=== PATIENT | female | born 1975 | race Caucasian/White ===

== ENCOUNTER 2020-10-11 22:41 | Inpatient (IN) | payer MEDICAID, SELFPAY ==
--- NOTE | ~2020-10-11 | CT_ITS ---
EXAMINATION: CT ABDOMEN AND PELVIS WITH CONTRAST CT LEFT FEMUR WITH CONTRAST CLINICAL INFORMATION: Left hip pain and erythema. Question of abscess. COMPARISON: None TECHNIQUE: Multidetector volumetric images were obtained from the superior aspect of the liver through the pubic symphysis following administration 85 mL of Omnipaque [address] imaging of the left femur was also performed. Sagittal and coronal reformatted images were obtained on the technologist's workstation. Oral contrast: No This CT examination was performed using dose optimization techniques as appropriate, variously including the following: *Automated exposure control *Adjustment of mA and/or kV according to patient size (this includes techniques or standardized protocols for targeted exams where dose is matched to indication/reason for exam; i.e. extremities or head) *Use of iterative reconstruction technique DLP: 947 mGy-cm FINDINGS: LUNG BASES: Dependent atelectatic changes present within the right lateral lung. LIVER, GALLBLADDER, AND BILIARY TREE: The liver is normal in size, shape, and attenuation. No focal hepatic lesion or biliary ductal dilatation is present. Gallbladder unremarkable. PANCREAS: Unremarkable. SPLEEN: Unremarkable. ADRENAL GLANDS: Unremarkable. KIDNEYS AND URETERS: The kidneys are normal in size, shape, and attenuation. There is a 5.8 cm simple cyst emanating from the anterior cortex of the right kidney. No hydronephrosis, hydroureter, or calculi seen. No perinephric stranding. BLADDER: There is a diverticulum in the right posterolateral aspect of the bladder. Bladder otherwise unremarkable. GASTROINTESTINAL TRACT: The small and large bowel are unremarkable. The appendix is unremarkable. ABDOMINAL WALL: No significant hernia is appreciated. LYMPH NODES: Normal. VASCULAR: Unremarkable. PELVIC VISCERA: Hysterectomy. No adnexal abnormalities. MUSCULOSKELETAL STRUCTURES: Shortness there is a 9.5 x 6.0 x 6.6 cm fluid and gas containing collection, which is largely coalescent and likely communicates with a comminuted healing fracture of the left iliac wing with associated callus formation. There is also involvement of the adjacent LEFT quadratus lumborum which is thickened and shows low-density change likely representing myositis Associated with this comminuted healing fracture is surrounding fluid, both superficial and deep to the iliac wing measuring 5.4 x 4.6 x 6.3 cm which likely represents an infected hematoma in this case. This fracture extends to the left sacroiliac joint which is diastatic. There is mild thickening of the overlying gluteus minimus musculature at the site of the comminuted fracture of the left iliac wing, as well as the iliacus musculature. Multiple additional chronic fractures of the pelvis are identified in various stages of healing including bilateral comminuted superior and inferior pubic rami fractures involving the anterior wall of the acetabulum on the left with intra-articular extension, as well as a minimally displaced fracture of the right iliac crest, and bilateral vertical longitudinal fractures of the sacral lacy, zone 1. Left femur is intact. Fat stranding centered within the left flank/gluteal region and overlying skin thickening extends inferiorly along the lateral left thigh, however the deeper musculature of the left thigh is unremarkable. CT/CT abdomen pelvis w con IMPRESSION: * There is a large abscess within the subcutaneous fat of the left flank and buttock which extends to a comminuted chronic nonunited fracture of the left iliac wing where there is an additional associated fluid collection associated with the fracture, presumably an infected hematoma. Osteomyelitis of the bones surrounding this fracture is present until proven otherwise. * Nondisplaced right iliac wing fracture, bilateral superior and inferior pubic rami fractures and bilateral sacral fractures show varying degrees of healing. The left superior pubic ramus fracture involves anterior acetabulum. * Skin thickening and fat stranding extending inferiorly along the left thigh, there is no evidence of deeper involvement with respect to the left thigh or femur. This critical result was discussed with Dr Lily Jackson at 10/12/2020 4:37 AM and it was ascertained that the content and urgency of the report was understood at the time of direct communication.
[2020-10-11 23:01] VITALS: BP 127/82; BP 160/100; PULSE 116; PULSE 122; RESP 18; TEMP 38.2; O2SAT 100; O2SAT 97; BMI 34.2
--- NOTE | 2020-10-11 23:28 | ED.GENADULT ---
HPI - General Adult General Chief complaint: General Medical Stated complaint: L Hip Pain Time Seen by Provider: 10/11/20 22:47 Source: patient Mode of arrival: EMS History of Present Illness HPI narrative: 45-year-old female with significant history and current use IVDA of heroin last use was approximately 6 hours ago now presents via EMS with complaints severe left hip pain that has been ongoing for 4-5 days with associated subjective fever, chills and severe pain that is prevented her from being able to ?straighten at the waist?. Patient denies any numbness or tingling to the distal lower left extremity but has severe pain over the left lateral aspect of the hip. She denies any falls or physical trauma recently. Related Data Home Medications Medication Instructions Recorded Confirmed No Known Home Meds 10/12/20 10/12/20 Allergies Allergy/AdvReac Type Severity Reaction Status Date / Time Penicillins [PENICILLINS] Allergy Mild RASH Unverified 12/03/19 17:32 methocarbamol [From ROBAXIN] Allergy Unknown UNKNOWN Unverified 12/03/19 17:32 diphenhydramine AdvReac Unknown RERSTLESS Unverified 12/03/19 17:32 [From BENADRYL] LEGS Review of Systems Review of Systems: Pertinent positives and negatives as stated in HPI 10 point review of systems is otherwise negative. PMFSH Past Medical History Source: nursing notes reviewed Medical History Endometriosis Social History Social History Advance Directives: No Advance Directives Information Provided: No Patient : No Physical Exam Vital Signs: Vital Signs: Last Vital Signs Temp 100.7 F H 10/11/20 23:01 Pulse 74 10/12/20 06:00 Resp 16 10/12/20 06:00 BP 99/58 L 10/12/20 06:00 Pulse Ox 92 10/12/20 03:00 Body Mass Index 34.2 VITAL SIGNS: Reviewed. GENERAL: Well developed, well nourished, in no acute distress. HEAD: Normocephalic/atraumatic EYES: PERRLA, EOMI EARS: Ext canals without abnormality NOSE: Nares patent bilateral OROPHARYNX: no oral lesions noted, posterior pharynx clear NECK: Supple, no adenopathy LUNGS: Normal breath sounds. No adventitious sounds or accessory muscle use. SpO2<97> CARDIOVASCULAR: Regular rate and rhythm without noted murmurs ABDOMEN: Soft, non-tender, non-distended with bowel sounds. LEFT HIP/GLUTEAL: Patient is in a flexed position at the hip with noted erythema/swelling/excruciating pain on palpation over the lateral hip, tactile warmth, sensation intact, capillary refill less than 3 seconds, palpable DP/PT SKIN: Inspection of the skin reveals no rashes, ulcerations noted to bilateral posterior upper extremities without active drainage but evidence of surrounding erythema NEUROLOGIC: Alert and oriented x 4. Strength and sensation to light touch were grossly intact x 4. Course Course Course Narrative: 45-year-old female with history and clinical presentation consistent with IVDA and suspect abscess versus septic joint. Will gain IV access, administered pain medications and evaluate with lab work as well as imaging. Review of all investigations consistent with abscess and sepsis, patient received pain medication with resolution of discomfort on re-evaluation, as well as receiving antibiotics/lactic acid/blood cultures. Case was discussed with industrial economics professor Surgical Services who is agreeable for admission. Orthopedic service was also consulted. Medical Decision Making Lab Data Result diagrams: 10/12/20 01:04 10/12/20 01:04 Labs: Lab Results 10/12/20 10/12/20 10/12/20 Range/Units 01:04 01:04 01:04 WBC 12.9 H (4.8-10.8) X10*3/uL RBC 3.26 L (4.20-5.50) X10*6/uL Hgb 7.2 L (12.0-16.0) g/dl Hct 23.2 L (37-47) % MCV 71.2 L (80-98) fL MCH 22.1 L (27.0-33.0) pg MCHC 31.0 (31.0-35.0) g/dl RDW 15.8 (11.0-16.0) % Plt Count 479 H (160-400) X10*3/uL MPV 9.2 L (9.4-12.3) fL Immature Gran % (Auto) 1.2 H (0.0-0.4) % Neut % (Auto) 76.0 H (45-73) % Lymph % (Auto) 9.7 L (20-40) % [place] % (Auto) 11.9 H (2-11) % Eos % (Auto) 1.0 (0-4) % Baso % (Auto) 0.2 (0-2) % Lymph # (Auto) 1.3 (1.2-4.9) X10*3/uL [place] # (Auto) 1.5 H (0.1-1.2) X10*3/uL Eos # (Auto) 0.1 (0.0-0.4) X10*3/uL Baso # (Auto) 0.0 (0.0-0.2) X10*3/uL Abs Immat Gran (auto) 0.16 H (0.00-0.03) X10*3/uL Absolute Neuts (auto) 9.8 H (2.0-8.3) X10*3/uL Absolute Nucleated RBC 0.000 (0.0-0.012) X10*3/uL Nucleated RBC % (auto) 0.0 (0.0-0.2) /100WBC Smear Tech's Comments VERIFIED Sodium 137 (135-145) mmol/L Potassium 3.2 L (3.3-5.1) mmol/L Chloride 101 (96-108) mmol/L Carbon Dioxide 26 (22-29) mmol/L Anion Gap 13 (12-20) BUN 10 (9-16) mg/dL Creatinine 0.62 (0.5-1.4) mg/dL Estim Creat Clear Calc 115.9 Estimated GFR > 60 Random Glucose 110 (60-115) mg/dL Lactic Acid 0.8 (0.5-2.0) mmol/L Calcium 8.7 (8.4-10.2) mg/dL Total Bilirubin 0.4 (0.0-1.0) mg/dL AST 21 (5-31) U/L ALT 15 (0-31) U/L Alkaline Phosphatase 201 H (39-117) U/L C-Reactive Protein 27.40 H (< or = 0.50) mg/dL Total Protein 6.1 L (6.5-8.0) g/dL Albumin 2.9 L (3.5-5.0) g/dL COVID-19 (LYNDSEY) (Negative) COVID-19 Clin Com 10/12/20 Range/Units 04:50 WBC (4.8-10.8) X10*3/uL RBC (4.20-5.50) X10*6/uL Hgb (12.0-16.0) g/dl Hct (37-47) % MCV (80-98) fL MCH (27.0-33.0) pg MCHC (31.0-35.0) g/dl RDW (11.0-16.0) % Plt Count (160-400) X10*3/uL MPV (9.4-12.3) fL Immature Gran % (Auto) (0.0-0.4) % Neut % (Auto) (45-73) % Lymph % (Auto) (20-40) % [place] % (Auto) (2-11) % Eos % (Auto) (0-4) % Baso % (Auto) (0-2) % Lymph # (Auto) (1.2-4.9) X10*3/uL [place] # (Auto) (0.1-1.2) X10*3/uL Eos # (Auto) (0.0-0.4) X10*3/uL Baso # (Auto) (0.0-0.2) X10*3/uL Abs Immat Gran (auto) (0.00-0.03) X10*3/uL Absolute Neuts (auto) (2.0-8.3) X10*3/uL Absolute Nucleated RBC (0.0-0.012) X10*3/uL Nucleated RBC % (auto) (0.0-0.2) /100WBC Smear Tech's Comments Sodium (135-145) mmol/L Potassium (3.3-5.1) mmol/L Chloride (96-108) mmol/L Carbon Dioxide (22-29) mmol/L Anion Gap (12-20) BUN (9-16) mg/dL Creatinine (0.5-1.4) mg/dL Estim Creat Clear Calc Estimated GFR Random Glucose (60-115) mg/dL Lactic Acid (0.5-2.0) mmol/L Calcium (8.4-10.2) mg/dL Total Bilirubin (0.0-1.0) mg/dL AST (5-31) U/L ALT (0-31) U/L Alkaline Phosphatase (39-117) U/L C-Reactive Protein (< or = 0.50) mg/dL Total Protein (6.5-8.0) g/dL Albumin (3.5-5.0) g/dL COVID-19 ([facility]NDSEY) Negative (Negative) COVID-19 Clin Com See Note Critical Care Time Critical Care Time Critical Care Time: Yes Total Critical Care Time: 30 Attestation: I personally attest to this time spent taking care of the patient. Discharge Plan Discharge Clinical Impression: Abscess, gluteal, left, Sepsis, Multiple pelvic fractures Patient Disposition: Admitted As Inpatient
[2020-10-12] VITALS (23 sets, daily range): BP systolic 90–154; BP diastolic 45–93; PULSE 74–111; RESP 12–22; TEMP 37–37.7; O2SAT 92–100; BMI 32.9; BMI 27.5
--- NOTE | 2020-10-12 00:05 | PC.NURSE ---
MD AT BEDSIDE FOR EVAL. PT UNABLE TO SIT UP STRAIGHT D/T PAIN TO LOWER BACK AREA. PT IS A VERY DIFFICULT STICK. CHG NURSE IN ROOM FOR IV PLACEMENT. PT CRYING IN PAIN. WILL CONTINUE TO MONITOR PT.
[2020-10-12] MEDS: Acetaminophen 325 MG TABLET 975 MG PO (00:16)
--- NOTE | 2020-10-12 01:09 | PC.NURSE ---
PT IS A VERY DIFFICULT STICK, AWARE. IV PLACED TO LEFT FA. LABS DRAWN BY STRAIGHT STICK. TITA HOLLEY [phone].
[2020-10-12 01:13] LABS: Basophils Percent Auto 0.2 % (0-2); Eosinophils Absolute Auto 0.1 X10*3/uL (0.0-0.4); Hematocrit 23.2 % (37-47); Hemoglobin 7.2 g/dl (12.0-16.0); Imm Gran Abs Auto 0.16 X10*3/uL (0.00-0.03); Imm Gran Pct Auto 1.2 % (0.0-0.4); Lymphocytes Absolute Auto 1.3 X10*3/uL (1.2-4.9); Lymphocytes Percent Auto 9.7 % (20-40); MANUAL DIFF FLAG SCAN; Mean Corpuscular Hemoglobin 22.1 pg (27.0-33.0); Mean Corpuscular Volume 71.2 fL (80-98); Mean Platelet Volume 9.2 fL (9.4-12.3); Monocytes Absolute Auto 1.5 X10*3/uL (0.1-1.2); Monocytes Percent Auto 11.9 % (2-11); Neutrophils Absolute Auto 9.8 X10*3/uL (2.0-8.3); Platelet Count 479 X10*3/uL (160-400); Red Blood Count 3.26 X10*6/uL (4.20-5.50); Red Cell Distribution Width 15.8 % (11.0-16.0); SCAN SMEAR FLAG 1; White Blood Count 12.9 X10*3/uL (4.8-10.8)
[2020-10-12 01:34] LABS: Lactic Acid 0.8 mmol/L (0.5-2.0)
[2020-10-12 01:35] LABS: SLIDE REVIEW VERIFIED
[2020-10-12 01:40] LABS: Alanine Aminotransferase 15 U/L (0-31); Albumin Level 2.9 g/dL (3.5-5.0); Alkaline Phosphatase 201 U/L (39-117); Anion Gap 13 (12-20); Aspartate Amino Transferase 21 U/L (5-31); Bilirubin Total 0.4 mg/dL (0.0-1.0); Blood Urea Nitrogen 10 mg/dL (9-16); Calcium 8.7 mg/dL (8.4-10.2); Carbon Dioxide 26 mmol/L (22-29); Chloride 101 mmol/L (96-108); Creatinine Clr Calc Pharmacy 115.9; Estimated Glomerular Filt Rate > 60; Glucose Random 110 mg/dL (60-115); Potassium 3.2 mmol/L (3.3-5.1); Sodium 137 mmol/L (135-145); Total Protein 6.1 g/dL (6.5-8.0)
[2020-10-12] MEDS: Ketorolac Tromethamine 15 MG/ML VIAL IVPUSH (02:33)
--- NOTE | 2020-10-12 03:15 | PC.NURSE ---
helped pt on to her side for cat scan.
[2020-10-12] MEDS: fentaNYL citrate/PF 100 MCG/2 ML VIAL 25 MCG IVPUSH (03:30)
[2020-10-12] MEDS: Piperacillin Sodium/Tazobactam 3.375 GM in 0.9 % Sodium Chloride 50 ML IV ×3 (04:30→18:36)
[2020-10-12] MEDS: vancomycin HCL 1,000 MG in 0.9 % Sodium Chloride 250 ML 270 MG IV (05:01)
[2020-10-12] MEDS: iohexoL 350 MG/ML 100 ML INFUS..BTL 85 ML IV (06:41)
[2020-10-12 07:13] LABS: COVID-19 Test Negative (Negative); IDNOW Serial# 9DD0AD1C
--- NOTE | 2020-10-12 07:25 | PC.NURSE ---
Pt is in bed resting quietly with eyes closed. respirations are even and nonlabored
[2020-10-12] MEDS: HYDROmorphone HCl 0.5 MG/0.5 ML SYRINGE IVPUSH ×4 (08:13→22:07)
[2020-10-12] MEDS: 0.9 % Sodium Chloride 1,000 ML 100 ML IVCONT (08:17)
[2020-10-12] MEDS: 0.9 % Sodium Chloride Flush 3 ML SYRINGE IVFLUSH ×2 (08:17→17:14)
--- NOTE | 2020-10-12 08:18 | PM.HPGS ---
History of Present Illness History of Present Illness Date of Service: 10/12/20 Chief complaint: left hip abscess Narrative: Katie Tejada is a 45 year old female who has a long history of IV drug abuse and skin popping , was brought the ER overnight because of left pain. The patient although await, is not very willing to engage at this time and provides limited history. She does state that she has history of falling although she says that this was not recent. She says she has had severe pain on the left hip area for several days now. She seems to have been bed ridden already for a while because of this. She denies fever or chills at home. Again, not much of a history is provided by the patient at this time. Review of Systems Constitutional: Constitutional: Denies chills and Denies fever(s) Cardiovascular: Cardiovascular: Denies chest pain, Denies dyspnea and Denies dyspnea on exertion Respiratory: Respiratory: Denies cough, Denies dyspnea and Denies dyspnea on exertion Gastrointestinal: Gastrointestinal: Denies hematochezia and Denies change in bowel habits Genitourinary: Genitourinary: Denies hematuria Musculoskeletal: Musculoskeletal: Reports back pain and Reports limited range of motion Neurologic: Denies focal weakness and Denies convulsions Psychiatric: Psychiatric: Denies depression and Denies mood swings PMFSH Past Medical History Medical History Endometriosis IV drug abuse Social History Social History Patient Tobacco Use Status: Current everyday Tobacco user Tobacco use type: Cigarette Smoked in Last 30 Days: Yes Use of substances other than those prescribed or required for medical reasons: Yes Substance Use Frequency: Daily Are you DNR?: No Advance Directives: No Advance Directives Information Provided: No Recently lost weight without trying: No Nutrition Risks: No Nutritional Risk Patient : No Meds Allergies Allergy/AdvReac Type Severity Reaction Status Date / Time Penicillins [PENICILLINS] Allergy Mild RASH Verified 10/12/20 12:57 methocarbamol [From ROBAXIN] Allergy Unknown UNKNOWN Verified 10/12/20 12:57 diphenhydramine AdvReac Unknown RERSTLESS Verified 10/12/20 12:57 [From BENADRYL] LEGS Active Medications: Current Medications Generic Name Dose Route Start Last Admin Trade Name Freq PRN Reason Stop Dose Admin Heparin Sodium (Porcine) 5,000 unit 10/12/20 22:00 Heparin Sodium,Porcine 5,000 Unit/Ml Vial SUBCUT Q12H KEMAL Hydromorphone HCl 0.5 mg 10/12/20 07:50 10/12/20 08:13 Hydromorphone Hcl 0.5 Mg/0.5 Ml Syringe IVPUSH 0.5 mg Q3H PRN Administration pain Sodium Chloride 1,000 mls @ 100 mls/hr 10/12/20 08:00 10/12/20 08:17 Ns IVCONT 100 mls/hr .Q10H KEMAL Administration Piperacillin Sod/Tazobactam 50 mls @ 100 mls/hr 10/12/20 12:00 Sod 3.375 gm/ Sodium Chloride IV Q6H KEMAL Sodium Chloride 3 ml 10/12/20 08:00 10/12/20 08:17 0.9 % Sodium Chloride Flush 3 Ml Syringe IVFLUSH 3 ml QSHIFT KEMAL Administration Home Medications Medication Instructions Recorded Confirmed Last Taken Type No Known Home Meds 10/12/20 10/12/20 Unknown History Physical Exam Vital Signs: Vital Signs: Last Vital Signs Temp 100.7 F H 10/11/20 23:01 Pulse 74 10/12/20 06:00 Resp 16 10/12/20 06:00 BP 99/58 L 10/12/20 06:00 Pulse Ox 92 10/12/20 03:00 Body Mass Index 34.2 Const: Other: Lying on her right side, not very communicative although awake - does not seem to want to engage at this time General: no acute distress Orientation/consciousness: patient oriented x3 Neck: Neck: Yes no lymphadenopathy Resp: Auscultation: clear to auscultation bilaterally Cardio: Rhythm: regular rhythm GI: Palpation (GI): Soft to palpation, nontender and no guarding Back/Spine/Pelvis: Other: On the left hip area is note of a large very protuberant induration, about 7 cm in diameter, tender to touch with erythema of the skin; patient with very limited motion on this and is lying on the right side because of pain and tenderness Skin: Other: Multiple skin ulcerations were out her extremities from skin popping Neuro: General: patient oriented x3 Results Results Labs: Short CBC 10/12/20 Range/Units 01:04 WBC 12.9 H (4.8-10.8) X10*3/uL Hgb 7.2 L (12.0-16.0) g/dl Hct 23.2 L (37-47) % Plt Count 479 H (160-400) X10*3/uL BMP 10/12/20 01:04 Sodium 137 Potassium 3.2 L Chloride 101 Carbon Dioxide 26 BUN 10 Creatinine 0.62 Calcium 8.7 Liver Function 10/12/20 Range/Units 01:04 Total Bilirubin 0.4 (0.0-1.0) mg/dL AST 21 (5-31) U/L ALT 15 (0-31) U/L Alkaline Phosphatase 201 H (39-117) U/L Albumin 2.9 L (3.5-5.0) g/dL CT scan - pelvis: report reviewed and image reviewed Assessment and Plan (1) Abscess, gluteal, left: Status: Acute [age] year female with known long-standing history of IV drug abuse, admitted because of left hip pain. She has a CT scan showing a large abscess within the subcutaneous fat of the left flank and buttock extending to a comminuted chronic none noted fracture of the left iliac wing with the correction surrounding the fracture as well. There was note of osteomyelitis of the fractured bone. I have therefore schedule her for an I and D in the operating room under anesthesia. Explained to the patient the technique of this procedure. I had the risks including but not limited to bleeding, infections, postop pain, as well as benefits alternatives. She has given consent. I have discussed the above with the orthopedic service and no other orthopedic intervention is planned at this time. A formal consult will be following on them. The patient has been started on Zosyn and Vanco in the ER. I will do cultures of this abscess in the OR. Quality Stroke Does the patient have a stroke diagnosis?: No VTE Prior VTE?: No VTE Risk Level:: Medical - moderate - high VTE Device Contraindication: N/A - Device Ordered VTE Drug Contraindication: N/A - Med Ordered Procedures Date of Service Date of Service: 10/12/20
--- NOTE | 2020-10-12 09:16 | PC.NURSE ---
Report given to Operating room nurse
[2020-10-12 10:07] LABS: Glucose Urine UA NEG (NEG); Leukocyte Esterase Urine NEG (NEG); Nitrite Urine NEG (NEG); Specific Gravity - Urine 1.015 (1.005-1.025); Urine Blood NEG (NEG); Urine Ketones NEG (NEG); Urine Protein TRACE MG/DL (NEG-TRACE)
[2020-10-12 10:09] LABS: Appearance Urine CLEAR; Color Urine DARK YELLOW
--- NOTE | 2020-10-12 11:24 | PC.NURSE ---
Patient is asleep in bed in no acute distress. respirations are even and nonlabored
--- NOTE | 2020-10-12 12:41 | PC.NURSE ---
patient going by stretcher to operating room. in no acute distress
[2020-10-12 12:47] LABS: UPreg QC Valid YES; Urine Pregnancy NEGATIVE (NEGATIVE)
[2020-10-12] MEDS: Lactated Ringers 500 ML 20 ML IVCONT (13:51)
--- NOTE | 2020-10-12 14:21 | P.OP_ITS ---
Operative Note Operative Note Date of Service: 10/12/20 Narrative: Preop diagnosis: Left hip deep abscess Postop diagnosis: Left hip, deep abscess Procedure: Incision and drainage of a deep abscess of the left hip under anesthesia Surgeon: Andrae Teran MD patient observation assistant: EASTON Robles The patient is a 45-year-old female, admitted by the ER because of a deep left hip abscess. She has a long history of IV drug abuse. She apparently has had falls in the past as her CAT scan had shown an old comminuted iliac fracture on the left, with signs of osteomyelitis. She came to the ER because of pain and tenderness on this area. Her CAT scan had shown a large, deep abscess adjacent to the iliac. This was reviewed with the radiologist She understood the technique of I and D under anesthesia. She was aware of the risks, benefits, and alternatives. She was brought to the operating room and placed in sloppy right lateral decubitus position under monitored anesthesia care. A surgical time-out was done. The area of the left hip was prepped and draped usual sterile fashion. I infiltrated the planned line of incision generously with lidocaine 1%. I made incision using a blade 15. In a cruciate fashion and this was deepened through the thick subcutaneous fat. I then bluntly probed the deep subcutaneous layer using a Eli clamp until was able to enter an abscess cavity. Large amounts of thick purulent material was drained. I did cultures and this were sent for specimens. I probed the deep abscess cavity with my finger to make sure that we had broken down loculations. Again, large amounts of purulent material was drained. We then copiously irrigated the cavity. I then applied an iodoform packing into the area. Dressings were applied. I infiltrated the area with Marcaine 0.5% for postop analgesia and the procedure was completed. The patient tolerated the procedure well. No immediate complications were noted. She was transferred to recovery room with stable vital signs.
--- NOTE | 2020-10-12 14:27 | PM.OP ---
Brief Operative Note Date of Service: 10/12/20 Pre-op diagnosis: left hip abscess Post-op diagnosis: same Procedure: Incision and drainage of left hip abscess Surgeon: MARY ZAMBRANO MD Anesthesia: MAC Was an Industrial Aerial Installer used for this Procedure?: Yes Industrial Aerial Installer: Viktoria Robles Estimated blood loss (mL): 5 Pathology: other (left hip abscess culture) Condition: stable Disposition: PACU
[2020-10-12] MEDS: HYDROmorphone HCl 1 MG/ML SYRINGE IVPUSH (16:10)
[2020-10-12] MEDS: Potassium Chloride Packet 20 MEQ PACKET 40 MEQ PO (17:14)
[2020-10-12] MEDS: Ketorolac Tromethamine 15 MG/ML VIAL 30 MG IVPUSH (17:14)
--- NOTE | 2020-10-12 18:23 | PC.NURSE ---
ADMISSION FROM PACU AT 1641. SUPERVISIOR ASSISTED WITH ADMISSION. SURGEON BEDSIDE TO CHANGE SATURATED LEFT HIP DRESSING. PAIN 8/. TREATED WITH PRN MEDICATION - SEE EMAR. PHOTOS OBTAINED OF BILATERAL ARMS. WOUND RN BEDSIDE.
[2020-10-12] MEDS: Heparin Sodium,Porcine 5,000 UNIT/ML VIAL 5000 UNIT SUBCUT (22:07)
[2020-10-13] VITALS: RESP 16
[2020-10-13] MEDS: Piperacillin Sodium/Tazobactam 3.375 GM in 0.9 % Sodium Chloride 50 ML IV ×5 (01:05→23:32)
[2020-10-13] MEDS: Ketorolac Tromethamine 15 MG/ML VIAL 30 MG IVPUSH ×2 (01:05→07:45)
[2020-10-13] MEDS: oxyCODONE HCl Immed Release 5 MG TABLET PO ×4 (01:05→23:31)
[2020-10-13] MEDS: HYDROmorphone HCl 0.5 MG/0.5 ML SYRINGE IVPUSH ×3 (03:26→08:24)
[2020-10-13 07:09] LABS: MANUAL DIFF FLAG NO
[2020-10-13 07:18] LABS: Hematocrit 23.6 % (37-47); Hemoglobin 7.1 g/dl (12.0-16.0); Mean Corpuscular Volume 73.3 fL (80-98); Red Blood Count 3.22 X10*6/uL (4.20-5.50); White Blood Count 10.6 X10*3/uL (4.8-10.8)
[2020-10-13 07:19] LABS: Basophils Percent Auto 0.2 % (0-2); Eosinophils Absolute Auto 0.2 X10*3/uL (0.0-0.4); Eosinophils Percent Auto 1.5 % (0-4); Imm Gran Abs Auto 0.21 X10*3/uL (0.00-0.03); Lymphocytes Absolute Auto 1.4 X10*3/uL (1.2-4.9); Lymphocytes Percent Auto 13.6 % (20-40); Mean Corpuscular HGB Conc 30.1 g/dl (31.0-35.0); Mean Platelet Volume 9.8 fL (9.4-12.3); Neutrophils Absolute Auto 7.8 X10*3/uL (2.0-8.3); Neutrophils Percent Auto 73.7 % (45-73); Platelet Count 497 X10*3/uL (160-400); Red Cell Distribution Width 16.2 % (11.0-16.0)
[2020-10-13 07:31] VITALS: BP 111/77; PULSE 81; RESP 18; TEMP 37.2; O2SAT 97
[2020-10-13 07:44] LABS: Anion Gap 14 (12-20); Blood Urea Nitrogen 9 mg/dL (9-16); Calcium 8.4 mg/dL (8.4-10.2); Carbon Dioxide 25 mmol/L (22-29); Chloride 106 mmol/L (96-108); Estimated Glomerular Filt Rate > 60; Glucose Fasting 108 mg/dL (60-99); Potassium 4.2 mmol/L (3.3-5.1); Sodium 141 mmol/L (135-145)
--- NOTE | 2020-10-13 08:08 | PM.PNGS ---
Subjective Subjective Date of Service: 10/13/20 <Viktoria Robles PA-C - Last Filed: 10/13/20 08:17> 10/13/20 <Andrae Teran MD - Last Filed: 10/13/20 08:27> Interval history: Left hip feels a little better but still complains of severe pain. Dilaudid dose not providing significant relief. Reports IVDA of 3 bundles of heroin and 250 cocaine daily prior to admission. Gives history of falling into dresser and hitting hip 2 weeks ago. Reports multiple falls due to being high since initial injury/fall one year prior. <Viktoria Robles PA-C - Last Filed: 10/13/20 08:17> Physical Exam Vital Signs: Vital Signs: Last Vital Signs Temp 98.9 F 10/13/20 07:31 Pulse 81 10/13/20 07:31 Resp 18 10/13/20 07:31 BP 111/77 10/13/20 07:31 Pulse Ox 97 10/13/20 07:31 Body Mass Index 27.5 <Viktoria Robles PA-C - Last Filed: 10/13/20 08:17> Const: General: no acute distress, alert and anxious <Viktoria Robles PA-C - Last Filed: 10/13/20 08:17> Orientation/consciousness: patient oriented x3 <Viktoria Robles PA-C - Last Filed: 10/13/20 08:17> Resp: Effort & Inspection: normal respiratory effort <Viktoria Robles PA-C - Last Filed: 10/13/20 08:17> Cardio: Rate: regular rate <Viktoria Robles PA-C - Last Filed: 10/13/20 08:17> Skin: General skin exam: other (multiple eschars of upper extremities) <LORENA Chin Last Filed: 10/13/20 08:17> Neuro: General: patient oriented x3 <LORENA Chin Last Filed: 10/13/20 08:17> Extrem: Other: left hip abscess/I&D site with decreasing erythema and edema- packing remains in place, some seropurulent drainage from site <LORENA Chin Last Filed: 10/13/20 08:17> Procedures Date of Service Date of Service: 10/13/20 <Viktoria Robles PA-C - Last Filed: 10/13/20 08:17> Progress Note: A&P Assessment and plan (1) Abscess, gluteal, left: Status: Acute <Viktoria Robles PA-C - Last Filed: 10/13/20 08:17> Assessment and Plan: POD #1 s/p incision and drainage. Dressing changed, packing advanced. Some seropurulent drainage persists. Erythema and induration improved. WBC normalized. Abscess improving s/p drainage. Continue daily dressing changes- likely will remove packing in 1-2 days. Cont IV zosyn. Await abscess culture results. Will consult ID for osteomyelitis of left hip and antibiotic recommendations. Pain medication adjusted for better pain control. Likely will be difficult in light of history of drug abuse. <Viktoria Robles PA-C - Last Filed: 10/13/20 08:17> (2) IV drug abuse: Status: Acute <Viktoria Robles PA-C - Last Filed: 10/13/20 08:17> Assessment and Plan: Consult to Addiction medicine placed. <Viktoria Robles PA-C - Last Filed: 10/13/20 08:17> Assessment and Plan: pt seen and examined large swelling on left hip has improved after I and D asking for higher dose of pain meds dressings changed consult ID for osteomyelitis of iliac with fracture consult Angelique Dickey of addiction medicine <Andrae Teran MD - Last Filed: 10/13/20 08:27> Fall Risk Details Current Medications: Current Medications Generic Name Dose Route Start Last Admin Trade Name Freq PRN Reason Stop Dose Admin Heparin Sodium (Porcine) 5,000 unit 10/12/20 22:00 10/12/20 22:07 Heparin Sodium,Porcine 5,000 Unit/Ml Vial SUBCUT 5,000 unit Q12H KEMAL Administration Hydromorphone HCl 0.5 mg 10/13/20 08:06 Hydromorphone Hcl 0.5 Mg/0.5 Ml Syringe IVPUSH 10/13/20 08:07 ONCE ONE Hydromorphone HCl 1 mg 10/13/20 08:07 Hydromorphone Hcl 0.5 Mg/0.5 Ml Syringe IVPUSH Q3H PRN pain Piperacillin Sod/Tazobactam 50 mls @ 100 mls/hr 10/12/20 12:00 10/13/20 06:37 Sod 3.375 gm/ Sodium Chloride IV Infused Q6H KEMAL Infusion Potassium Chloride/Sodium Chloride 20 meq in 1,000 mls @ 80 mls/hr 10/12/20 16:30 10/12/20 17:19 IVCONT 80 mls/hr .[id number] KEMAL Administration Ketorolac Tromethamine 30 mg 10/12/20 16:30 10/13/20 07:45 Ketorolac Tromethamine 15 Mg/Ml Vial IVPUSH 30 mg Q6H PRN Administration hip pain Oxycodone HCl 5 mg 10/12/20 16:30 10/13/20 05:30 Oxycodone Hcl Immed Release 5 Mg Tablet PO 5 mg Q4H PRN Administration Pain, Moderate (Pain Scale 4-6 Sodium Chloride 3 ml 10/12/20 08:00 10/13/20 07:51 0.9 % Sodium Chloride Flush 3 Ml Syringe IVFLUSH Not Given QSHIFT KEMAL <Viktoria Robles PA-C - Last Filed: 10/13/20 08:17> Time Spent With Patient Time: Total time spent is greater than 50% in coordination of care (as documented) at patient's floor/unit and/or counseling patient: <Viktoria Robles PA-C - Last Filed: 10/13/20 08:17> Time with patient: 15 - 24 minutes <Viktoria Robles PA-C - Last Filed: 10/13/20 08:17> Quality Stroke Does the patient have a stroke diagnosis?: No <Viktoria Robles PA-C - Last Filed: 10/13/20 08:17> VTE Prior VTE?: No <LORENA Chin Last Filed: 10/13/20 08:17> VTE Risk Level:: Medical - moderate - high <LORENA Chin Last Filed: 10/13/20 08:17> VTE Device Contraindication: N/A - Device Ordered <LORENA Chin Last Filed: 10/13/20 08:17> VTE Drug Contraindication: N/A - Med Ordered <Viktoria Robles PA-C - Last Filed: 10/13/20 08:17>
--- NOTE | 2020-10-13 08:22 | HO.POSTANES ---
Post Anesthesia Evaluation Post Anesthesia Evaluation Vital Signs: Vital Signs Temp Pulse Resp BP Pulse Ox 10/13/20 07:31 98.9 F 81 18 111/77 97 10/13/20 00:00 16 Anesthesia: Monitored Mental Status: Awake Pain Control: Satisfactory Nausea/Vomiting: None Hydration: Adequate Anesthesia-Related Issues: No Anes. Related Issues
--- NOTE | 2020-10-13 09:09 | P.CDIC_ITS ---
CDI Concurrent Query Service Date: 10/13/20 Documentation Clarification: Please clarify if you are treating a proba ble/suspected/likely or confirmed: Sepsis due to abscess of the left gluteal POA Abscess left gluteal Please specify if known or undetermined Provider Response: Other (No. Pt clinically stable, did not appear septic ) Other Diagnosis: not treated for sepsis PLEASE DO NOT DELETE/MODIFY EXISTING CONTENT Additional information is needed in order to code to the highest accuracy and appropriate Severity of Illness (SOI). Please clarify the information noted below in your progress notes and discharge summary. Risk Factors/Clinical Indicators/Treatments ED: 10/12 -Impression - Abscess, Sepsis IV Zosyn and Vancomycin Temp 100.7 WBC 12.9 RR 22 Patient states fever and chills at home, IV heroin drug use, skin popping. Surgery - I&D deep abscess left hip, large amounts of purulent material was drained. Continue IV Zosyn ID consult requested for the osteomyelitis. CDS: Brigette Carty CCS, CDIS Contact Number: [phone] Please Review the information above and exercise your independent professional judgment in responding to the query. If you concur, pleas document in the PROGRESS NOTES and DISCHARGE SUMMARY. If you do not agree with the query, please document in the query above. THIS QUERY IS PART OF THE PERMANENT MEDICAL RECORD
[2020-10-13] MEDS: Heparin Sodium,Porcine 5,000 UNIT/ML VIAL 5000 UNIT SUBCUT ×2 (09:19→22:27)
--- NOTE | 2020-10-13 09:41 | MHC.CM.PN ---
CM ATTEMPTED TO MEET W/PT, PT OPENED EYES AND SAID HELLO AND THEN FELL BACK TO SLEEP, PT NOT RESPODING TO VERBAL PROMPTS FROM CM AT THIS TIME, CM TO RE-APPROACH PT LATER IN SHIFT.
--- NOTE | 2020-10-13 10:34 | MHC.RECOVRN ---
T/w met with pt in 362 after consult placed to Addiction Medicine. Pt sleeping when t/w entered room. Pt awoke to voice. Pt reporting pain, requesting increase in pain medication. Pt denies withdrawal symptoms at this time. Pt reports using heroin, 3 bundles, and cocaine, IV, daily x 6 months. Last use RN TRANSITION. Pt interested in methadone while inpatient. Pt reports hx methadone at [facility] x years. Last dose last year, 90 mg per patient report. Patient falling asleep in between questions during interview. Case discussed with pts RN as well as Naye Bernabe NP.
[2020-10-13] MEDS: HYDROmorphone HCl 0.5 MG/0.5 ML SYRINGE 1 MG IVPUSH ×4 (11:24→22:28)
--- NOTE | 2020-10-13 13:49 | PC.NURSE ---
Pt's S.O. WAS IN TO VISIT, SECURITY SUSPECTED ILLICIT DRUGS AN D SEARCH PT, BOY FRIEND DRUG WERE FOUND IN TRASH. NO VISITORS ALLOWED
[2020-10-13] MEDS: Lactated Ringers 1,000 ML 80 ML IVCONT (14:04)
[2020-10-13 15:32] VITALS: BP 142/63; PULSE 92; RESP 20; TEMP 36.2; O2SAT 98
--- NOTE | 2020-10-13 15:33 | MHC.CM.PN ---
EMR REVIEWED, PT ADMITTED W/ LEFT HIP ABSCESS, PT HAD I&D ON 10/12, PT ALSO WAS FOUND TO HAVE COMMUNATED CHRONIC FRACTURE LEFT ILIAC AND OSTEOMYELITIS, CM MET W/RECOVERY NURSE WHO REPORTED PT ROLD HER SHE WOULD WANT METHADONE MAIN HOWEVER WHEN CM MET W/PT SHE SAID SHE DID NOT WANT METHADONE, PT REPORTS INDEPENDENT W/CARE, HAS A WHEELED WALKER/CANE AT HOME, NO SERVICES, NO PCP AND GIVEN PAMPHLET W/C PROVIDERS, PT AWARE IF GOING TO SNF FOR IV ABX SHE WILL NEED TO COMPLETE A HCP HOWEVER DECLINES AT THIS TIME, DUE TO PT BEING AN IV DRUG USER REFERRAL PLACED TO [facility] PT DECLINED GOING TO SNF IN [place]. CM WILL CONT TO FOLLOW. D/C PLAN: HOME VS STR FOR IV ABX, PT WILL NEED TRANSPORTATION REGARDLESS OF DIPSO.
--- NOTE | 2020-10-13 16:00 | MHC.RECOVRN ---
T/w met with pt, along with Naye Bernabe NP, to discuss possibility of methadone initiation. Pt awake, alert, engaged during entire discussion. Pts Enrico moffett, present as well. Nathan had many suggestions for pts medications, including 30 mg of methadone. Pt declining methadone at this time. Pt concerned regarding pain, requesting increase in medication. Pt informed that Naye will make recommendations to provider. After leaving pts room, discussed with Naye the change in patient's presentation from this morning and the possibility of pt having substances in room. Concern shared with director Gilmer Garibay as well as security.
--- NOTE | 2020-10-13 17:13 | HO.ADDICT_ITS ---
History of Present Illness Date of Service: 10/13/2020 Chief Complaint: left hip abscess Reason for Consult: opioid use disorder Requesting physician: Viktoria Robles Discussed with referring provider: Yes (contacted provider via secure messaging) Sources of Information: patient interviewed and chart reviewed HPI Narrative: Patient had been admitted for care and management of an abscess, gluteal, left, and sepsis, and multiple pelvic fractures. She does have a hi story of IV opioid and cocaine use. Past Psychiatric History: unknown. Medical Evaluation Reviewed: Yes Personal & Social History: Patient had significant other in room with her during encounter. Review of Systems Review of Systems Patient reported pain, denied any other symptoms. Yes all other systems are reviewed and are negative Psychiatric: Reports no additional psychiatric complaints Diagnostics Vital Signs (24Hr): Vital Signs - 24 hr 10/13/20 00:00 10/13/20 07:31 10/13/20 15:32 Temperature 98.9 F 97.1 F Pulse Rate 81 92 Respiratory Rate 16 18 20 Blood Pressure 111/77 142/63 H Pulse Oximetry 97 98 Body Mass Index 27.5 Labs Results: 10/13/20 06:54 10/13/20 06:54 Labs: Laboratory Results - last 48 hr 10/12/20 10/12/20 10/12/20 01:04 01:04 01:04 WBC 12.9 H RBC 3.26 L Hgb 7.2 L Hct 23.2 L MCV 71.2 L MCH 22.1 L MCHC 31.0 RDW 15.8 Plt Count 479 H MPV 9.2 L Immature Gran % (Auto) 1.2 H Neut % (Auto) 76.0 H Lymph % (Auto) 9.7 L [place] % (Auto) 11.9 H Eos % (Auto) 1.0 Baso % (Auto) 0.2 Lymph # (Auto) 1.3 [place] # (Auto) 1.5 H Eos # (Auto) 0.1 Baso # (Auto) 0.0 Abs Immat Gran (auto) 0.16 H Absolute Neuts (auto) 9.8 H Absolute Nucleated RBC 0.000 Nucleated RBC % (auto) 0.0 Smear Tech's Comments VERIFIED Sodium 137 Potassium 3.2 L Chloride 101 Carbon Dioxide 26 Anion Gap 13 BUN 10 Creatinine 0.62 Estim Creat Clear Calc 115.9 Estimated GFR > 60 Random Glucose 110 Fasting Glucose Lactic Acid 0.8 Calcium 8.7 Total Bilirubin 0.4 AST 21 ALT 15 Alkaline Phosphatase 201 H C-Reactive Protein 27.40 H Total Protein 6.1 L Albumin 2.9 L Urine Color Urine Appearance Urine pH Ur Specific Anderson Urine Protein Urine Glucose (UA) Urine Ketones Urine Blood Urine Nitrite Ur Leukocyte Esterase Urine Test COVID-19 ([facility]) COVID-19 Clin Com 10/12/20 10/12/20 10/12/20 04:50 09:53 Unknown WBC RBC Hgb Hct MCV MCH MCHC RDW Plt Count MPV Immature Gran % (Auto) Neut % (Auto) Lymph % (Auto) [place] % (Auto) Eos % (Auto) Baso % (Auto) Lymph # (Auto) [place] # (Auto) Eos # (Auto) Baso # (Auto) Abs Immat Gran (auto) Absolute Neuts (auto) Absolute Nucleated RBC Nucleated RBC % (auto) Smear Tech's Comments Sodium Potassium Chloride Carbon Dioxide Anion Gap BUN Creatinine Estim Creat Clear Calc Estimated GFR Random Glucose Fasting Glucose Lactic Acid Calcium Total Bilirubin AST ALT Alkaline Phosphatase C-Reactive Protein Total Protein Albumin Urine Color DARK YELLOW Urine Appearance CLEAR Urine pH 6.0 Ur Specific Anderson 1.015 Urine Protein TRACE Urine Glucose (UA) NEG Urine Ketones NEG Urine Blood NEG Urine Nitrite NEG Ur Leukocyte Esterase NEG Urine Test NEGATIVE COVID-19 ([facility]) Negative COVID-19 [employer] See Note 10/13/20 10/13/20 06:54 06:54 WBC 10.6 RBC 3.22 L Hgb 7.1 L Hct 23.6 L MCV 73.3 L MCH 22.0 L MCHC 30.1 L RDW 16.2 H Plt Count 497 H MPV 9.8 Immature Gran % (Auto) 2.0 H Neut % (Auto) 73.7 H Lymph % (Auto) 13.6 L [place] % (Auto) 9.0 Eos % (Auto) 1.5 Baso % (Auto) 0.2 Lymph # (Auto) 1.4 [place] # (Auto) 1.0 Eos # (Auto) 0.2 Baso # (Auto) 0.0 Abs Immat Gran (auto) 0.21 H Absolute Neuts (auto) 7.8 Absolute Nucleated RBC 0.000 Nucleated RBC % (auto) 0.0 Smear Tech's Comments Sodium 141 Potassium 4.2 D Chloride 106 Carbon Dioxide 25 Anion Gap 14 BUN 9 Creatinine 0.67 Estim Creat Clear Calc 96.0 Estimated GFR > 60 Random Glucose Fasting Glucose 108 H Lactic Acid Calcium 8.4 Total Bilirubin AST ALT Alkaline Phosphatase C-Reactive Protein Total Protein Albumin Urine Color Urine Appearance Urine pH Ur Specific Anderson Urine Protein Urine Glucose (UA) Urine Ketones Urine Blood Urine Nitrite Ur Leukocyte Esterase Urine Test COVID-19 ([facility]) COVID-19 Clin Com Mental Status Exam Mental Status Exam Narrative: Well-developed, well-nourished female, appears older than stated age, in NAD. No type of substance, either opioid or cocaine, withdrawals noted/observed. Patient Appearance: Appropriate and Unkempt Patient Orientation: Person, Place, Time and Situation Level of Consciousness: Appropriate and Alert Patient Behavior: Cooperative, Suspicious and Anxious Mood Description: Anxious Affect Description: Appropriate, Depressed, Anxious and Nervous Patient Cognition Impaired: No Ability to Follow Directions: Excellent Speech Pattern: Clear Memory Description: Intact Hallucinations: None Delusions: Not Present Thought Process: Intact Thought Content: positive for Intact Depressive Symptoms: Increased Anxiety and Feelings of Worthlessness Judgement: Poor (patient appeared to be recently using substances while inpatient.) Medications Medications Current Medications Generic Name Dose Route Start Last Admin Trade Name Freq PRN Reason Stop Dose Admin Heparin Sodium (Porcine) 5,000 unit 10/12/20 22:00 10/13/20 09:19 Heparin Sodium,Porcine 5,000 Unit/Ml Vial SUBCUT 5,000 unit Q12H KEMAL Administration Hydromorphone HCl 1 mg 10/13/20 08:07 10/13/20 14:51 Hydromorphone Hcl 0.5 Mg/0.5 Ml Syringe IVPUSH 1 mg Q3H PRN Administration pain Piperacillin Sod/Tazobactam 50 mls @ 100 mls/hr 10/12/20 12:00 10/13/20 11:52 Sod 3.375 gm/ Sodium Chloride IV Infused Q6H KEMAL Infusion Lactated Ringer's 1,000 mls @ 80 mls/hr 10/13/20 14:00 10/13/20 14:04 Lr IVCONT 80 mls/hr .[id number] KEMAL Administration Ketorolac Tromethamine 30 mg 10/12/20 16:30 10/13/20 07:45 Ketorolac Tromethamine 15 Mg/Ml Vial IVPUSH 30 mg Q6H PRN Administration hip pain Oxycodone HCl 5 mg 10/12/20 16:30 10/13/20 14:04 Oxycodone Hcl Immed Release 5 Mg Tablet PO 5 mg Q4H PRN Administration Pain, Moderate (Pain Scale 4-6 Sodium Chloride 3 ml 10/12/20 08:00 10/13/20 16:04 0.9 % Sodium Chloride Flush 3 Ml Syringe IVFLUSH Not Given QSHIFT KEMAL Allergies Allergies Allergy/AdvReac Type Severity Reaction Status Date / Time Penicillins [PENICILLINS] Allergy Mild RASH Verified 10/12/20 12:57 methocarbamol [From ROBAXIN] Allergy Unknown UNKNOWN Verified 10/12/20 12:57 diphenhydramine AdvReac Unknown RERSTLESS Verified 10/12/20 12:57 [From BENADRYL] LEGS Assessment & Plan Assessment & Plan (1) IV drug abuse: Status: Acute Code(s): F19.10 - Other psychoactive substance abuse, uncomplicated Recommendations: Patient reports history of IV heroin and cocaine use. Reports she had relapsed approximately 6 or 7 months ago after some amount of sobriety. Reports she had maintained abstinence previously by attending local 12 step meetings. Patient reports that she had a history of methadone in the past, but is not interested in any type of methadone treatment at this time. She also is not interested in Suboxone treatment. When discussed comfort medications such as the use of clonidine or Vistaril, loperamide ibuprofen, she stated that she does not want any of those medications. She reports that she also has a history of abusing gabapentin in the past. She did state that she is in significant pain, and woul d like to have her opioid pain medication increased. We did discuss the use of multimodal pain management which includes scheduled Tylenol, use of relaxation techniques, etc, for effective pain management. Due to patient's lack of any type of withdrawal symptoms or discomfort, hyper alertness, and behavior of her significant other, it was suspected that they may possibly have been using illicit substances in the room. Security was called, and a search yielded illicit substances in the room's trash. Recommendations: RECOMMENDATIONS: Patient has reported she is not interested in referral to a methadone clinic, or initiation of Suboxone once she has completed her opioid medicaitons here. At this point, I will sign off on this patient's care, as there are no services that I can offer. Recovery team including certified retinal angiographer has been working with patient to offer support. I have shared my thoughts / concerns with surgical service providers, via secure electronic messaging. Thank you for this consultation. If patient changes mind, and would like to discuss medication assisted therapy or other treatment options for substance use disorder, please do not hesitate to contact us. Greater than 50% of the session was spent on counseling and/or coordination of care Patient educated on: diagnosis, medication risk/benefits and therapeutic strategies Informed Consent: understands [facility]LY [facility], [facility] Past Medical History Medical History Endometriosis IV drug abuse Social History Social History Household Members: Significant Other Housing: Apartment Unable to assess alcohol history related to: Unknown Patient Tobacco Use Status: Current everyday Tobacco user Tobacco use type: Cigarette service: No Current occupational status: unemployed Travel History Ebola Risk: Travel/Contact With Anyone From Affected Area/s: No Has Patient Experienced Ebola Symptoms: No I have personally reviewed the patient's Ebola risk: Yes History of recent travel: No Recent Travel in [place] Within the Last 8 Weeks: No Recent Out of Country Travel Within the Last 8 Weeks: No Exposure or Possible Exposure to Illness During Travel: No History of Being in a Healthcare Facility as a Patient, Worker, or Visitor during Travel: No Medical Treatment Received for Symptoms/Illness Related to Travel: No
[2020-10-13] MEDS: 0.9 % Sodium Chloride Flush 3 ML SYRINGE IVFLUSH (22:28)
[2020-10-13 23:39] VITALS: BP 123/70; PULSE 92; RESP 20; TEMP 36.1; O2SAT 97
[2020-10-14] MEDS: HYDROmorphone HCl 0.5 MG/0.5 ML SYRINGE 1 MG IVPUSH ×7 (01:29→22:21)
[2020-10-14] MEDS: oxyCODONE HCl Immed Release 5 MG TABLET PO ×4 (03:35→21:10)
[2020-10-14] MEDS: LORazepam 1 MG TABLET 2 MG PO (05:45)
[2020-10-14] MEDS: Piperacillin Sodium/Tazobactam 3.375 GM in 0.9 % Sodium Chloride 50 ML IV ×2 (06:21→11:52)
[2020-10-14] MEDS: Ketorolac Tromethamine 15 MG/ML VIAL 30 MG IVPUSH ×2 (06:22→17:08)
[2020-10-14 08:00] VITALS: BP 156/82; PULSE 81; RESP 18; TEMP 36.4; O2SAT 98
[2020-10-14] MEDS: Heparin Sodium,Porcine 5,000 UNIT/ML VIAL 5000 UNIT SUBCUT ×2 (08:30→21:09)
--- NOTE | 2020-10-14 08:45 | PM.PNGS ---
Subjective Subjective Date of Service: 10/17/20 Interval history: Asking for Dilaudid dose Her fiance was in the room yesterday afternoon and was caught by security to be bringing in drugs for the patient Patient denies this event Physical Exam Vital Signs: Vital Signs: Last Vital Signs Temp 97.5 F 10/14/20 08:00 Pulse 81 10/14/20 08:00 Resp 18 10/14/20 08:00 BP 156/82 H 10/14/20 08:00 Pulse Ox 98 10/14/20 08:00 Body Mass Index 27.5 Const: General: comfortable and no acute distress Resp: Effort & Inspection: normal respiratory effort Cardio: Rate: regular rate GI: Palpation (GI): Soft to palpation and nontender Back/Spine/Pelvis: Other: Left hip I&D site much improved with regards redness and induration, place, some scanty drainage Procedures Date of Service Date of Service: 10/14/20 Progress Note: A&P Assessment and plan (1) Abscess, gluteal, left: Status: Acute Assessment and Plan: Status post I and D in the OR for a very deep abscess of the left hip osteomyelitis of the iliac and an old comminuted fracture On IV Zosyn Area much improved Addiction medicine consult - patient was seen yesterday ID consult still pending - for osteomyelitis of old community fracture, left iliac Pain management Hemodynamically stable Dressings changed Packing pulled out a little more Await cultures Fall Risk Details Current Medications: Current Medications Generic Name Dose Route Start Last Admin Trade Name Freq PRN Reason Stop Dose Admin Heparin Sodium (Porcine) 5,000 unit 10/12/20 22:00 10/14/20 08:30 Heparin Sodium,Porcine 5,000 Unit/Ml Vial SUBCUT 5,000 unit Q12H KEMAL Administration Hydromorphone HCl 1 mg 10/13/20 08:07 10/14/20 08:29 Hydromorphone Hcl 0.5 Mg/0.5 Ml Syringe IVPUSH 1 mg Q3H PRN Administration pain Piperacillin Sod/Tazobactam 50 mls @ 100 mls/hr 10/12/20 12:00 10/14/20 07:14 Sod 3.375 gm/ Sodium Chloride IV Infused Q6H KEMAL Infusion Lactated Ringer's 1,000 mls @ 80 mls/hr 10/13/20 14:00 10/14/20 03:36 Lr IVCONT Not Given .[id number] KEMAL Ketorolac Tromethamine 30 mg 10/12/20 16:30 10/14/20 06:22 Ketorolac Tromethamine 15 Mg/Ml Vial IVPUSH 30 mg Q6H PRN Administration hip pain Oxycodone HCl 5 mg 10/12/20 16:30 10/14/20 03:35 Oxycodone Hcl Immed Release 5 Mg Tablet PO 5 mg Q4H PRN Administration Pain, Moderate (Pain Scale 4-6 Sodium Chloride 3 ml 10/12/20 08:00 10/14/20 08:16 0.9 % Sodium Chloride Flush 3 Ml Syringe IVFLUSH Not Given QSHIFT KEMAL Time Spent With Patient Time: Total time spent is greater than 50% in coordination of care (as documented) at patient's floor/unit and/or counseling patient: Time with patient: 25 - 35 minutes Quality Stroke Does the patient have a stroke diagnosis?: No VTE Prior VTE?: No VTE Risk Level:: Medical - moderate - high VTE Device Contraindication: N/A - Device Ordered VTE Drug Contraindication: N/A - Med Ordered
--- NOTE | 2020-10-14 09:17 | MHC.RECOVRN ---
T/w met with pt to f/u regarding withdrawal symptoms. Pt reporting pain. Pt falling asleep during conversation many times, able to wake to voice. Camera now in pts room. Case discussed with Naye Bernabe NP, as well as pts RN. Will continue to follow.
[2020-10-14] MEDS: Lactated Ringers 1,000 ML 80 ML IVCONT (09:24)
--- NOTE | 2020-10-14 10:35 | P.EN_ITS ---
Event Note Date of Service: 10/12/20 Event Note: General surgery consult for orthopedics for a nondisplaced right i liac wing fracture as well as bilateral superior and inferior pubic rami fractures and bilateral sacral fractures. The left superior pubic ramus fracture involves the anterior acetabulum. The case and x-rays were reviewed with Dr. cordero who states that there is no further orthopedic care needed at this time.
--- NOTE | 2020-10-14 15:08 | PM.EVENT ---
Event Note Date of Service: 10/14/20 Event Note: Discussed case with Dr. Hadley from ID- recommend 6 weeks IV vanco if MRSA. If methicillin-sensitive S aureus, recommend 6 weeks IV kefzol.
[2020-10-14 16:00] VITALS: BP 140/69; PULSE 96; RESP 20; TEMP 36.2; O2SAT 96
--- NOTE | 2020-10-14 16:02 | PM.EVENT ---
Event Note Date of Service: 10/14/20 Event Note: Patient seen on afternoon rounds Discussed with her that as per the recommendations, she will 6 weeks of IV antibiotics via PICC line She will therefore not be able to go home because of her history of heavy IV drug abuse Discussed with case management - will have to arrange for discharge to facility Also, discussed with addiction medicine - continue current pain medications Will eventually need to be on methadone Continue current wound care with dry dressings daily Has packing in place which will be pulled completely by this weekend Patient likely to stay here in the hospital until PICC line and placement after discharge are finalized
--- NOTE | 2020-10-14 17:18 | P.EN_ITS ---
Event Note Date of Service: 10/14/20 Event Note: Met with patient at 15:40 today along with addiction RN. Patient had requested methadone initiation. Upon interview, however, patient reports that she only wishes to receive methadone at this time while inpatient. It was explained that patient is currently receiving several short-acting opioid medications for pain management, and that if she is discharged to a shelter facility, it would require coordination with a outpatient methadone clinic. She stated that she understood. Patient reports feeling restless legs, generalized body aches, yawning, and ?I am crawling out of my skin?. She states that she has not used any substances since before she entered the hospital. Patient did not display any objective symptoms of opioid withdrawals during encounter. This investment underwriter met with surgeon Dr. Teran while on unit. Patient to continue opioids as prescribed at this time, addiction consult service can meet with patient as needed to offer support. Addiction consult service also willing to meet with patient again in order to discuss possibility methadone going forward, after weekend.
[2020-10-14] MEDS: Mupirocin 2 % Oint 22 GM TUBE 1 APPL TOPICAL (19:24)
[2020-10-14] MEDS: 0.9 % Sodium Chloride Flush 3 ML SYRINGE IVFLUSH (22:21)
--- NOTE | 2020-10-14 22:37 | PC.NURSE ---
Addendum entered by Iesha Rich RN 10/14/20 23:23: Pt a/o x4, anxious, restless, states she is withdrawing. Requesting increased in pain medications. Pt educated on pain regimen throughout the shift. Addiction team saw pt this afternoon and pt declined recommendations. Pt now requesting to leave AMA. Pt aware of the dangers of leaving without appropriate treatment. Dr. Kinsey made aware of pt leaving. No new orders received. IV removed. Industrial Waste Inspector aware. Original Note: Left hip dressing saturated, serosanguineous discharge noted, packing remains in place. DSD changed x2 on this shift. Pt medicated with PRN pain medication as ordered around the clock. Pt was noted to be vaping in the room at 2235. Vape device taken away/locked in pt specific bin. Pt denies having any other smoking devices. Industrial Waste Inspector made aware.
--- NOTE | 2020-10-18 16:05 | PM.DS ---
DS: Providers Provider Date of Service: 10/18/20 Date of admission: 10/12/20 07:47 Date of discharge: 10/14/20 Primary care physician: Unknown Physician Consults: 10/12/20 07:52 Consult to Orthopedics Routine Consulting Provider: Nadine Black Reason for consultation: left iliac fracture, with large abscess Has provider been notified: No 10/13/20 08:07 Addiction Medicine Routine Consulting Provider: Angelique Dickey Reason for consultation: IVDA Has provider been notified: No Consult to Infectious Diseases Routine Consulting Provider: Bing Hadley Reason for consultation: osteomyelitis left hip Has provider been notified: No DS: Diagnosis Discharge Diagnosis (1) Abscess, gluteal, left: Status: Acute DS: Medications Discharge Medications Home Medications: Home Medications Medication Instructions Recorded Confirmed No Known Home Meds 10/12/20 10/12/20 DS: Summary Hospital Course Hospital Course: The patient is a 45-year-old female, with history of drug abuse who was admitted via the 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 She had a CAT scan showing an old, comminuted fracture of the left iliac with a large abscess on the left hip adjacent to this. She was started on IV Zosyn. therefore underwent incision drainage of this left hip abscess in the OR under anesthesia on October 12, 2020 and this was noted to be a deep abscess. A packing was left in place. She was transferred back to the floor postoperatively. Dressing changes were done every day and the packing was pulled out still at that time each day. Her cultures had shown Staph aureus so was she was switched to cefazolin as per discussion with the Infectious Disease Service. She however signed out against medical advise as per the nurse report, close to midnight of October 14, 2020. It is noted as well that security had been involved in her care as the patient is significant other had apparently brought in illicit drugs to the patient and a visit on 10/13/2020. The patient also had been seen by the Addiction Medicine Service as a consult. I also had discussed her case with the orthopedic service. Time spent discussing smoking cessation with patient: more than 10 minutes Time Spent with Patient Time attestation: Total time spent providing and/or coordinating discharge services: Discharge coordination time: Less than 30 minutes Quality: Stroke Does the patient have a stroke diagnosis?: No Physical Exam Vital Signs: Vital Signs: Last Vital Signs Temp 97.1 F 10/14/20 16:00 Pulse 96 10/14/20 16:00 Resp 20 10/14/20 16:00 BP 140/69 H 10/14/20 16:00 Pulse Ox 96 10/14/20 16:00 Body Mass Index 27.5 Const: General: no acute distress Resp: Effort & Inspection: normal respiratory effort Auscultation: clear to auscultation bilaterally Cardio: Rate: regular rate Back/Spine/Pelvis: Other: Open wound from I and D on the left DS: Data Data Completed and Pending Completed studies during hospitalization [Text1]: CT scan of the left hip Cultures Discharge Plan Discharge Patient Disposition: Left Against Medical Advice Discharge Diagnosis: Deep left hip abscess Referrals: Physician,Unknown [Primary Care Provider] - 1 Week Discharge Medications: No Action No Known Home Meds RF: 0 Discharge Orders: Discharge Order (Routine); Ordered 10/18/20 Ordered By: Andrae Teran Care Plan Goals: Control of IV drug abuse Health Concerns: IV drug abuse Plan of Treatment: Patient signed out against medical advice - antibiotics Assessment: Patient signed out against medical advice Discharge Date/Time: 10/14/20 23:45
--- NOTE | 2020-10-20 13:01 | P.DS_ITS ---
DS: Providers Provider Date of Service: 10/18/20 Date of admission: 10/12/20 07:47 Primary care physician: Unknown Physician Consults: 10/12/20 07:52 Consult to Orthopedics Routine Consulting Provider: Nadine Black Reason for consultation: left iliac fracture, with large abscess Has provider been notified: No 10/13/20 08:07 Addiction Medicine Routine Consulting Provider: Angelique Dickey Reason for consultation: IVDA Has provider been notified: No Consult to Infectious Diseases Routine Consulting Provider: Bing Hadley Reason for consultation: osteomyelitis left hip Has provider been notified: No DS: Diagnosis Discharge Diagnosis (1) Abscess, gluteal, left: Status: Acute DS: Medications Discharge Medications Home Medications: Home Medications Medication Instructions Recorded Confirmed No Known Home Meds 10/12/20 10/12/20 DS: Summary Hospital Course Hospital Course: The patient is a 45-year-old female, with history of drug abuse who was 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 She had a CAT scan showing an old, comminuted fracture of the left iliac with a large abscess on the left hip adjacent to this. She was started on IV Zosyn. therefore underwent incision drainage of this left hip abscess in the OR under anesthesia on October 12, 2020 and this was noted to be a deep abscess. A packing was left in place. She was transferred back to the floor postoperatively. Dressing changes were done every day and the packing was pulled out still at that time each day. Her cultures had shown Staph aureus so was she was switched to cefazolin as per discussion with the Infectious Disease Service. She however signed out against medical advise as per the nurse report, close to midnight of October 14, 2020. It is noted as well that security had been involved in her care as the patient is significant other had apparently brought in illicit drugs to the patient and a visit on 10/13/2020. The patient also had been seen by the Addiction Medicine Service as a consult. I also had discussed her case with the orthopedic service. Time Spent with Patient Time attestation: Total time spent providing and/or coordinating discharge services: Physical Exam Vital Signs: Vital Signs: Last Vital Signs Temp 97.1 F 10/14/20 16:00 Pulse 96 10/14/20 16:00 Resp 20 10/14/20 16:00 BP 140/69 H 10/14/20 16:00 Pulse Ox 96 10/14/20 16:00 Body Mass Index 27.5 Discharge Plan Discharge Patient Disposition: Left Against Medical Advice Discharge Diagnosis: Deep left hip abscess Referrals: Physician,Unknown [Primary Care Provider] - 1 Week Discharge Medications: No Action No Known Home Meds RF: 0 Discharge Orders: Discharge Order (Routine); Ordered 10/18/20 Ordered By: Andrae Teran Care Plan Goals: Control of IV drug abuse Health Concerns: IV drug abuse Plan of Treatment: Patient signed out against medical advice - antibiotics Assessment: Patient signed out against medical advice Discharge Date/Time: 10/14/20 23:45
== END 2020-10-14 23:45 | disposition left against medical advice (07) | DRG 364 ==
LOC: HO.ED 10-12 06:30 → HO.EDOVER 10-12 08:05 → HO.S3 10-12 15:50
PROVIDERS: Physician Assistant Surgical; Admitting Provider Surgery; Emergency Provider Student in an Organized Health Care Education/Training Program; Visit Provider Surgery
PROC: 0J990ZZ Drainage of Buttock Subcutaneous Tissue and Fascia, Open Approach (ICD-10-PCS; principal; 2020-10-12 13:30)
DX: L02.31 Cutaneous abscess of buttock (principal); S32.511A Fracture of superior rim of right pubis, initial encounter for closed fracture; S32.10XA Unspecified fracture of sacrum, initial encounter for closed fracture; S32.301A Unspecified fracture of right ilium, initial encounter for closed fracture; B95.61 Methicillin susceptible Staphylococcus aureus infection as the cause of diseases classified elsewhere; F11.10 Opioid abuse, uncomplicated; S32.512A Fracture of superior rim of left pubis, initial encounter for closed fracture; F17.210 Nicotine dependence, cigarettes, uncomplicated; Z71.6 Tobacco abuse counseling; X58.XXXA Exposure to other specified factors, initial encounter; Z20.822 Contact with and (suspected) exposure to COVID-19; Z88.0 Allergy status to penicillin
CPT/HCPCS: 36415; 73701; 74177; 80048; 80053; 81003; 81025; 83605; 85025; 86140; 87040; 87071; 87147; 87185; 87186; 87205; 87635; 99285; J0690; J1100; J1170; J1885; J2250; J2405; J2543; J3010; J3370; Q9967

== ENCOUNTER 2020-11-29 10:02 | Outpatient (RCR) | payer MEDICAID, SELFPAY | END 2021-01-13 12:24 | disposition home or self-care (01) | LOC: HO.WCC 10:02 | PROVIDERS: Visit Provider Physician Assistant | DX: L98.492 Non-pressure chronic ulcer of skin of other sites with fat layer exposed (principal); L97.812 Non-pressure chronic ulcer of other part of right lower leg with fat layer exposed; S31.829D Unspecified open wound of left buttock, subsequent encounter; F11.20 Opioid dependence, uncomplicated; F17.210 Nicotine dependence, cigarettes, uncomplicated; R60.0 Localized edema; Z86.19 Personal history of other infectious and parasitic diseases; Z91.81 History of falling; Z79.2 Long term (current) use of antibiotics | CPT/HCPCS: 11042; 11045 ==

== ENCOUNTER 2021-07-01 08:25 | Outpatient (REF) | payer MEDICAID, SELFPAY | END 2021-07-01 08:26 | disposition home or self-care (01) | LOC: HO.XRAY 08:25 | PROVIDERS: Absent Provider Nurse Practitioner Family; PCP Nurse Practitioner Family; Visit Provider Nurse Practitioner Primary Care | DX: Z13.89 Encounter for screening for other disorder (principal) ==

== ENCOUNTER 2021-07-27 11:15 | Outpatient (REF) | payer MEDICAID, SELFPAY ==
--- NOTE | ~2021-07-27 | XR_ITS ---
EXAMINATION: XR PELVIS CLINICAL INFORMATION: Unspecified injury, pain. COMPARISON: CT scan of the abdomen and pelvis dated 10/04/2020. TECHNIQUE: AP view of the pelvis. FINDINGS: Healed left ischium, left inferior pubic ramus and right superior pubic ramus fractures are noted. There is no acute fracture or dislocation. The joint spaces are unremarkable. The soft tissues are unremarkable. XR/XR pelvis 1-2V IMPRESSION: Old healed fractures similar to the previous CT scan. No overt acute abnormality.
== END 2021-07-27 11:16 | disposition home or self-care (01) ==
LOC: HO.XRAY 11:15
PROVIDERS: PCP Nurse Practitioner Family; Visit Provider Nurse Practitioner Family
DX: M25.551 Pain in right hip (principal); M25.552 Pain in left hip; R10.32 Left lower quadrant pain; S39.91XD Unspecified injury of abdomen, subsequent encounter
CPT/HCPCS: 72170

== ENCOUNTER 2021-07-29 10:51 | Outpatient (REF) | payer MEDICAID, SELFPAY ==
--- NOTE | ~2021-07-29 | XR_ITS ---
EXAMINATION: XR HIP-BILATERAL CLINICAL INFORMATION: Bilateral hip pain. COMPARISON: CT of the abdomen and pelvis done on 10/12/2020 and pelvic radiograph done on 07/27/2021. TECHNIQUE: 2 views each of both hips were obtained. FINDINGS: Right hip: The bony alignments are intact. The cortices are intact. The margins, joint space appear unremarkable. Mild diffuse osteopenia. Left hip: The bony alignments are intact. The cortices are intact. The joint space appear unremarkable. Mild diffuse osteopenia. Note is made of old healed fractures involving both inferior and superior pubic rami left iliac bone, best visualized on prior CT study dated 10/12/2020. XR/XR hip LT min 2V IMPRESSION: No radiographic evidence of any acute fracture, subluxation or dislocation or significant osteoarthrosis at the hips.
--- NOTE | ~2021-07-29 | XR_ITS ---
EXAMINATION: XR HIP-BILATERAL CLINICAL INFORMATION: Bilateral hip pain. COMPARISON: CT of the abdomen and pelvis done on 10/12/2020 and pelvic radiograph done on 07/27/2021. TECHNIQUE: 2 views each of both hips were obtained. FINDINGS: Right hip: The bony alignments are intact. The cortices are intact. The margins, joint space appear unremarkable. Mild diffuse osteopenia. Left hip: The bony alignments are intact. The cortices are intact. The joint space appear unremarkable. Mild diffuse osteopenia. Note is made of old healed fractures involving both inferior and superior pubic rami left iliac bone, best visualized on prior CT study dated 10/12/2020. XR/XR hip RT min 2V IMPRESSION: No radiographic evidence of any acute fracture, subluxation or dislocation or significant osteoarthrosis at the hips.
== END 2021-07-29 10:52 | disposition home or self-care (01) ==
LOC: HO.XRAY 10:51
PROVIDERS: Absent Provider Nurse Practitioner Family; PCP Nurse Practitioner Family; Visit Provider Nurse Practitioner Primary Care
DX: M25.551 Pain in right hip (principal); M25.552 Pain in left hip
CPT/HCPCS: 73502

== ENCOUNTER 2021-08-02 12:21 | Outpatient (REF) | payer MEDICAID, SELFPAY | END 2021-08-02 12:22 | disposition home or self-care (01) | LOC: HO.MRI 12:21 | PROVIDERS: Visit Provider Nurse Practitioner Family | DX: Z13.89 Encounter for screening for other disorder (principal) ==

== ENCOUNTER 2021-08-04 09:52 | Outpatient (REF) | payer MEDICAID, SELFPAY ==
--- NOTE | ~2021-08-04 | CT_ITS ---
EXAMINATION: CT PELVIS WITHOUT CONTRAST CLINICAL INFORMATION: Cutaneous abscess of buttock COMPARISON: Previous CT of the abdomen and pelvis and left femur September 2020 TECHNIQUE: Helical scanning was performed with submillimeter collimation through the pelvis. Sagittal and coronal multiplanar 2-D reconstructions were obtained. This CT examination was performed using dose optimization techniques as appropriate, variously including the following: *Automated exposure control *Adjustment of mA and/or kV according to patient size (this includes techniques or standardized protocols for targeted exams where dose is matched to indication/reason for exam; i.e. extremities or head) *Use of iterative reconstruction technique DLP: 538 mGy-cm FINDINGS: There is an old ununited fracture of the left iliac bone. There is surrounding increased soft tissue superficial and deep to the bone. This appears unchanged from September 2020. There is a focal collection in the left buttock superior to the left iliac crest. This measures 3 x 3.7 cm axial image 11 series 2. This has a tract that extends toward the lateral buttock skin surface for example axial image 19 series 2. Appearance is suggestive of an abscess. The more superficial air and fluid collections in the subcutaneous fat of the left buttock suggestive of abscesses seen September 2020 have resolved. There is widening of the left sacroiliac joint. There is bone loss seen on both sides of the sacroiliac joint and increased soft tissue questionable for septic arthritis. This appears increased from September 2020. There are old ununited fractures of the left superior and inferior pubic rami. This appears unchanged. No associated increased soft tissue is seen. There is scoliosis and degenerative change of the lower lumbar spine. There may be a right renal cyst that is partially visualized. There is mild diverticulosis of the colon. The bladder is normal. The uterus may been removed. There is a 2 x 3 cm right pelvic cyst probably representing an adnexal cyst. This is similar to 2020 exam. No adenopathy or ascites is seen in the pelvis. Vascular structures are normal. No hernia is seen. CT/CT pelvis wo con IMPRESSION: Ununited fracture of the left iliac bone. There is a surrounding soft tissues superficial and deep to the bone in the iliac and gluteal muscles that appears unchanged. Small residual probable abscess superior to the left iliac bone measuring 3 x 3.7 cm with tract extending to the lateral skin surface of the buttock. Appearance is suspicious for residual small abscess. The remainder of the abscesses in the subcutaneous fat over the left buttock on September 2020 exam have resolved. There is increasing widening and soft tissue in the left sacroiliac joint and loss of bone along the iliac and sacral sides. Appearance is suspicious for septic arthritis. This appears increased from September 2020 exam. Old unchanged ununited left superior-inferior pubic rami fractures.
== END 2021-08-04 09:53 | disposition home or self-care (01) ==
LOC: HO.CT 09:52
PROVIDERS: Visit Provider Nurse Practitioner Family
DX: L02.31 Cutaneous abscess of buttock (principal)
CPT/HCPCS: 72192

== ENCOUNTER 2022-11-26 09:02 | Outpatient (REF) | payer MEDICAID, SELFPAY ==
--- NOTE | ~2022-11-26 | CT_ITS ---
EXAMINATION: CT RIGHT HIP WITHOUT CONTRAST CT RIGHT HIP WITHOUT CONTRAST INDICATION: Pain. COMPARISON: CT dated 08/04/2021 TECHNIQUE: Multidetector volumetric imaging was obtained through the right hip and to the left hip without contrast. Multiplanar reformatted images in coronal and sagittal orientations were submitted. This CT examination was performed using dose optimization techniques as appropriate, variously including the following: *Automated exposure control *Adjustment of mA and/or kV according to patient size (this includes techniques or standardized protocols for targeted exams where dose is matched to indication/reason for exam; i.e. extremities or head) *Use of iterative reconstruction technique DLP: 539 mGy-cm FINDINGS: Since the prior study, there has been progressive osseous union at the left iliac fracture extending to the left SI joint. Sclerosis and cortical irregularity are again noted in the region of the fracture, though there is no osseous bridging across 90 percent of the fracture line. Alignment appears unchanged as compared to prior. Cortical irregularity, erosion, and articular widening are again noted at the left sacroiliac. New erosive changes are identified relative to the prior study. Alignment appears unchanged. 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 Chronic, nonunited fractures are again seen at the left superior and inferior pubic rami. The inferior pubic ramus fragment is medially displaced by approximately 1 cm with cortical irregularity at the margins. No osseous bridging is identified in either of the left pubic ramus fractures. Old healed fractures are evident at the right superior and inferior pubic rami. There is mild osteoarthritis in both hips, characterized by small marginal osteophytes and mild nonuniform joint space narrowing. Pubic symphysis is unremarkable. There is moderate degenerative disc disease at L4-L5 with grade 1 anterolisthesis of L4 on L5 and severe facet arthropathy. Severe facet arthropathy is also noted at L5-S1. No appreciable fluid collections are identified around the left iliac and pubic fractures. No significant joint effusions or bursitis. There is vszb-cf-jurpcuwa atrophy and fatty replacement of the gluteus minimus muscles. Tendons appear intact. There is a 3 x 2 mm right adnexal cyst which appears unchanged as compared to prior. Intrapelvic soft tissues are otherwise unremarkable. No acute findings. CT/CT hip LT wo IV con IMPRESSION: 1. 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 2. Chronic widening and erosion at the left SI joint, most likely due to posttraumatic arthritis. Chronic changes of previous septic arthritis could also produce this appearance. No new findings of infection. Previously suspected abscess is no longer apparent. 3. 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 4. 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 5. Mild osteoarthritis in both hips. 6. Moderate degenerative disc disease at L4-L5 with grade 1 anterolisthesis. Severe facet arthropathy at L4-L5 and L5-S1.
--- NOTE | ~2022-11-26 | CT_ITS ---
EXAMINATION: CT RIGHT HIP WITHOUT CONTRAST CT RIGHT HIP WITHOUT CONTRAST INDICATION: Pain. COMPARISON: CT dated 08/04/2021 TECHNIQUE: Multidetector volumetric imaging was obtained through the right hip and to the left hip without contrast. Multiplanar reformatted images in coronal and sagittal orientations were submitted. This CT examination was performed using dose optimization techniques as appropriate, variously including the following: *Automated exposure control *Adjustment of mA and/or kV according to patient size (this includes techniques or standardized protocols for targeted exams where dose is matched to indication/reason for exam; i.e. extremities or head) *Use of iterative reconstruction technique DLP: 539 mGy-cm FINDINGS: Since the prior study, there has been progressive osseous union at the left iliac fracture extending to the left SI joint. Sclerosis and cortical irregularity are again noted in the region of the fracture, though there is no osseous bridging across 90 percent of the fracture line. Alignment appears unchanged as compared to prior. Cortical irregularity, erosion, and articular widening are again noted at the left sacroiliac. New erosive changes are identified relative to the prior study. Alignment appears unchanged. There is ptzs-lx-sihvgpnk osteoarthritis in the right sacroiliac joint with nonuniform joint space narrowing and marginal osteophytes. Chronic, nonunited fractures are again seen at the left superior and inferior pubic rami. The inferior pubic ramus fragment is medially displaced by approximately 1 cm with cortical irregularity at the margins. No osseous bridging is identified in either of the left pubic ramus fractures. Old healed fractures are evident at the right superior and inferior pubic rami. There is mild osteoarthritis in both hips, characterized by small marginal osteophytes and mild nonuniform joint space narrowing. Pubic symphysis is unremarkable. There is moderate degenerative disc disease at L4-L5 with grade 1 anterolisthesis of L4 on L5 and severe facet arthropathy. Severe facet arthropathy is also noted at L5-S1. No appreciable fluid collections are identified around the left iliac and pubic fractures. No significant joint effusions or bursitis. There is hlgm-se-lflyzlrg atrophy and fatty replacement of the gluteus minimus muscles. Tendons appear intact. There is a 3 x 2 mm right adnexal cyst which appears unchanged as compared to prior. Intrapelvic soft tissues are otherwise unremarkable. No acute findings. CT/CT hip RT wo IV con IMPRESSION: 1. 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 2. Chronic widening and erosion at the left SI joint, most likely due to posttraumatic arthritis. Chronic changes of previous septic arthritis could also produce this appearance. No new findings of infection. Previously suspected abscess is no longer apparent. 3. 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 4. 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 5. Mild osteoarthritis in both hips. 6. Moderate degenerative disc disease at L4-L5 with grade 1 anterolisthesis. Severe facet arthropathy at L4-L5 and L5-S1.
== END 2022-11-26 09:03 | disposition home or self-care (01) ==
LOC: HO.CT 09:02
PROVIDERS: PCP Registered Nurse; Visit Provider Registered Nurse
DX: M25.551 Pain in right hip (principal); M25.552 Pain in left hip
CPT/HCPCS: 73700

== ENCOUNTER 2023-01-16 13:38 | Outpatient (REF) | payer MEDICAID, SELFPAY ==
--- NOTE | ~2023-01-16 | US_ITS ---
EXAMINATION: US PELVIS COMPLETE US PELVIS ENDOVAGINAL CLINICAL INFORMATION: Color and spectral Doppler evaluation of the ovaries was performed. COMPARISON: CT pelvis from 08/04/2021 TECHNIQUE: Transabdominal and transvaginal images of the pelvis were obtained. Limited evaluation with transvaginal imaging secondary to pain. FINDINGS: UTERUS: Surgically absent. RIGHT OVARY: Not well visualized. No right adnexal masses noted. LEFT OVARY: Not well visualized. No right adnexal masses noted. FREE FLUID: No pelvic free fluid. US/US pelvic complete IMPRESSION: 1. Limited evaluation secondary to inability to tolerate transvaginal imaging. 2. Status post hysterectomy. 3. Bilateral ovaries not well visualized. No adnexal masses or collections noted.
== END 2023-01-16 13:39 | disposition home or self-care (01) ==
LOC: HO.US 13:38
PROVIDERS: PCP Family Medicine; Visit Provider Family Medicine
DX: R37 Sexual dysfunction, unspecified (principal)
CPT/HCPCS: 76830; 76856

== ENCOUNTER 2023-07-29 12:08 | Outpatient (REF) | payer MEDICAID, SELFPAY | END 2023-07-29 12:09 | disposition home or self-care (01) | LOC: HO.HHCL 12:08 | PROVIDERS: Visit Provider Family Medicine | DX: Z13.89 Encounter for screening for other disorder (principal) ==

== ENCOUNTER 2023-08-16 11:17 | Outpatient (AMB) | payer MEDICAID, SELFPAY ==
--- NOTE | 2023-08-16 11:24 | A.OFFVIS_ITS ---
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 Patient reports have a surgery to her left hip to remove an abscess around 09/2020 here at [facility]. States she continues to have pain that has gotten worse. Her pain radiates into her pelvic and lower back as well as numbness and tingling. Finds no relief with heating or ibuprofen. Denies injury. 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 She denies any numbness or tingling. She finds no relief with heating or ibuprofen. She has not had any injury in the past. She has a history of sciatica. [facility] Medical History (Updated 08/21/23 @ 21:40 by Alfredo Rae PA-C) IV drug abuse Endometriosis Social History Household Members: Significant Other Housing: Apartment Unable to assess alcohol history related to: Unknown Patient Tobacco Use Status: Current everyday Tobacco user Tobacco use type: Cigarette service: No Current occupational status: unemployed Review of Systems Const All systems reviewed & are unremarkable except as noted in HPI and below Physical Exam Vital Signs: BMI result Body Mass Index 27.4 Const General: cooperative, healthy appearing, comfortable, no acute distress, well developed and alert Orientation/consciousness: patient oriented x3 HEENT Head: Yes normal to inspection, Yes normocephalic and Yes atraumatic Eyes General: appearance normal, both eyes and all related structures Resp Effort & Inspection: normal respiratory effort and able to speak in complete sentences Cardio Rate: regular rate Peripheral pulses: Peripheral pulses 2+ throughout GI Palpation (GI): Soft to palpation Skin Lesions: no lesions Rashes: no rashes Neuro General: patient oriented x3 Extrem Other: Bilateral hip: Normal to inspection. No pain with ROM of the hip. Pain along the greater trochanter. No pain with hip flexion or abduction. Positive tenderness along the SI joint, Positive SLR. NVI. Results Reviewed Results Reviewed: XR hip RT min 2V 07/2021 IMPRESSION: No radiographic evidence of any acute fracture, subluxation or dislocation or significant osteoarthrosis at the hips. Assessment & Plan Assessment & Plan (1) Bilateral hip bursitis: Code(s): M70.71 - Other bursitis of hip, right hip; M70.72 - Other bursitis of hip, left hip Category: Medical Plan We discussed options which include PT, NSAIDs and injections. The patient will defer on the injection today and proceed with PT and NSAIDs. If symptoms persist, the patient will contact me for an injection, otherwise, PRN. Patient Instructions: Scribed for Alfredo Rae PA-C, by Maikol Bobby medical program specialist, on 08/16/2023 at 11:00 AM EST.? I, Alfredo Rae PA-C, have personally reviewed and agree with the information entered by the scribe. Coding Level of Care Code New Pt Level 3 (88162) Diagnoses Bilateral hip bursitis M70.71; M70.72
[2023-08-16 11:26] VITALS: BMI 27.4
== END 2023-08-16 11:52 | disposition home or self-care (01) ==
LOC: HO.HOS 11:18
PROVIDERS: PCP Family Medicine; Visit Provider Physician Assistant
DX: M70.71 Other bursitis of hip, right hip (principal); M70.72 Other bursitis of hip, left hip
CPT/HCPCS: 99203

== ENCOUNTER → 2023-08-16 11:17 | Outpatient (BNVA) | payer MEDICAID, SELFPAY | PROVIDERS: PCP Family Medicine; Visit Provider Physician Assistant | DX: M70.71 Other bursitis of hip, right hip (principal); M70.72 Other bursitis of hip, left hip | CPT/HCPCS: 99212 ==

== ENCOUNTER 2023-08-23 11:48 | Outpatient (REF) | payer MEDICAID, SELFPAY | END 2023-08-23 11:49 | disposition home or self-care (01) | LOC: HO.HHCL 11:48 | PROVIDERS: Visit Provider Family Medicine | DX: Z13.89 Encounter for screening for other disorder (principal) ==

== ENCOUNTER 2023-09-27 10:46 | Outpatient (AMB) | payer MEDICAID, SELFPAY ==
--- NOTE | 2023-09-27 10:47 | MHC.OFFVIS ---
Intake Visit Reasons: New pt- back pain Intake Note: Katie is a 48 year old female who presents today as a new patient with complaints of back pain. Patient was referred by her PCP Dr Raine Cardenas. She expresses her left side of her back is worse than her right. Pt states she has a history of pelvic fractures that they found on the CT scan in 2022 that pt states she never knew about. Pt states she falls frequently. Allergies Penicillins [PENICILLINS] Allergy (Mild, Verified 09/27/23 10:47) RASH methocarbamol [From ROBAXIN] Allergy (Unknown, Verified 09/27/23 10:47) UNKNOWN diphenhydramine [From BENADRYL] Adverse Reaction (Unknown, Verified 09/27/23 10:47) RERSTLESS LEGS HPI Comments Details: Back and hip pain, since 5 years ago, chronic, ongoing. She had abscess excision on left buttocks 2019. History of septic arthritis. This area has been bothering her again since 5 days ago. She prefers to stand due to that pain. Left hip, lateral and buttocks pain, goes to groin and lower back. Lower back pain across goes both sides, though she points to SI joints, feel like they are swollen and moved. She has stooped forward posture, bent from waist, buttocks coming back out, knees bent, and she uses crutches. Wasn't aware of any fractures until recent hip CT showed pelvic fractures. Question of SI infection on CT? PCP has ordered blood work which patient has not done yet, she's is a difficulty draw. No antibiotics ordered yet. She says she's had fevers, chills, but has not taken her temp. Reviewed notes from orthopedics: Date of Service: 10/12/20 Event Note: General surgery consult for orthopedics for a nondisplaced right iliac wing fracture as well as bilateral superior and inferior pubic rami fractures and bilateral sacral fractures. The left superior pubic ramus fracture involves the anterior acetabulum. The case and x-rays were reviewed with Dr. Black who states that there is no further orthopedic care needed at this time. 08/16/2023 Assessment & Plan (1) Bilateral hip bursitis: Code(s): M70.71 - Other bursitis of hip, right hip; M70.72 - Other bursitis of hip, left hip Category: Medical Plan We discussed options which include PT, NSAIDs and injections. The patient will defer on the injection today and proceed with PT and NSAIDs. If symptoms persist, the patient will contact me for an injection, otherwise, PRN. Patient Instructions: Scribed for Alfredo Rae PA-C [facility] Medical History (Updated 09/27/23 @ 11:34 by Agatha Davila MD) IV drug abuse Endometriosis Social History Household Members: Significant Other Housing: Apartment Unable to assess alcohol history related to: Unknown Patient Tobacco Use Status: Current everyday Tobacco user Tobacco use type: Cigarette service: No Current occupational status: unemployed Review of Systems Const All systems reviewed & are unremarkable except as noted in HPI and below Physical Exam Constitutional: Patient appears to be in no acute distress, well nourished and well developed. Patient was appropriately conversant and oriented. Good historian. MSK: She has stooped forward posture, bent from waist, buttocks coming back out, knees bent, and she uses crutches. No warmth, swelling, redness on lower back, buttocks, pelvis area. Did not appear to be septic or in distress. Unable to do left leg extension due to pain. Give-way weakness on left ankle and knee extension and hip flexion due to pain. Right lower extremity 5/5 strength. Neurological: Núñez?s negative bilaterally. Babinski was down going bilaterally. Clonus was negative. Gait is antalgic without loss of balance. Results Reviewed Results Reviewed: Ordering Physician: Iris Haas Date of Service: 11/26/22 Procedure(s): CT hip RT wo IV con Accession Number(s): [id number] cc: Iris Haas~ EXAMINATION: CT RIGHT HIP WITHOUT CONTRAST CT RIGHT HIP WITHOUT CONTRAST INDICATION: Pain. COMPARISON: CT dated 08/04/2021 TECHNIQUE: Multidetector volumetric imaging was obtained through the right hip and to the left hip without contrast. Multiplanar reformatted images in coronal and sagittal orientations were submitted. This CT examination was performed using dose optimization techniques as appropriate, variously including the following: *Automated exposure control *Adjustment of mA and/or kV according to patient size (this includes techniques or standardized protocols for targeted exams where dose is matched to indication/reason for exam; i.e. extremities or head) *Use of iterative reconstruction technique DLP: 539 mGy-cm FINDINGS: Since the prior study, there has been progressive osseous union at the left iliac fracture extending to the left SI joint. Sclerosis and cortical irregularity are again noted in the region of the fracture, though there is no osseous bridging across 90 percent of the fracture line. Alignment appears unchanged as compared to prior. Cortical irregularity, erosion, and articular widening are again noted at the left sacroiliac. New erosive changes are identified relative to the prior study. Alignment appears unchanged. 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 Chronic, nonunited fractures are again seen at the left superior and inferior pubic rami. The inferior pubic ramus fragment is medially displaced by approximately 1 cm with cortical irregularity at the margins. No osseous bridging is identified in either of the left pubic ramus fractures. Old healed fractures are evident at the right superior and inferior pubic rami. There is mild osteoarthritis in both hips, characterized by small marginal osteophytes and mild nonuniform joint space narrowing. Pubic symphysis is unremarkable. There is moderate degenerative disc disease at L4-L5 with grade 1 anterolisthesis of L4 on L5 and severe facet arthropathy. Severe facet arthropathy is also noted at L5-S1. No appreciable fluid collections are identified around the left iliac and pubic fractures. No significant joint effusions or bursitis. There is uikz-ye-suvzwuaw atrophy and fatty replacement of the gluteus minimus muscles. Tendons appear intact. There is a 3 x 2 mm right adnexal cyst which appears unchanged as compared to prior. Intrapelvic soft tissues are otherwise unremarkable. No acute findings. CT/CT hip RT wo IV con IMPRESSION: 1. 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 2. Chronic widening and erosion at the left SI joint, most likely due to posttraumatic arthritis. Chronic changes of previous septic arthritis could also produce this appearance. No new findings of infection. Previously suspected abscess is no longer apparent. 3. 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 4. 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 5. Mild osteoarthritis in both hips. 6. Moderate degenerative disc disease at L4-L5 with grade 1 anterolisthesis. Severe facet arthropathy at L4-L5 and L5-S1. Assessment & Plan Assessment & Plan (1) Pelvic pain: Code(s): R10.2 - Pelvic and perineal pain Category: Medical (2) Pelvic fracture: Code(s): S32.9XXA - Fracture of unspecified parts of lumbosacral spine and pelvis, initial encounter for closed fracture Category: Medical Qualifiers: Encounter type: initial encounter Pelvic bone location: multiple parts Fracture type: closed (3) Sacroiliac joint dysfunction of left side: Code(s): M53.3 - Sacrococcygeal disorders, not elsewhere classified Category: Medical Plan History of past septic arthritis, gluteal abscess and pelvic fracture. Ongoing pain on left SI joint area. Recent hip CT showed iliac and pubic fractures, unknown chronicity. She does not appear to be septic. No abscess seen on exam. Advised to get the lab work ordered by PCP to be done today. To let me know of results as well. Getting lumbar x-rays today to rule out lumbar fractures. Further treatment depending on results. Assessment and plan discussed with patient, and patient was agreeable. All questions were answered thoroughly. Agatha Davila MD, DINA Board Certified, [place] Board [employer] and Rehabilitation (ABPMR) Board Certified, [place] Board of Electrodiagnostic Medicine (ABEM) Orders: Orders XR lumbar spine 2-3V Today M54.9 - Dorsalgia, unspecified Coding Level of Care Code New Pt Level 4 (18140) Diagnoses Pelvic pain R10.2 Pelvic fracture S32.9XXA Encounter type: initial encounter Pelvic bone location: multiple parts Fracture type: closed Sacroiliac joint dysfunction of left side M53.3
== END 2023-09-27 11:42 | disposition home or self-care (01) ==
PROVIDERS: PCP Family Medicine; Visit Provider Physical Medicine & Rehabilitation
DX: R10.2 Pelvic and perineal pain (principal); S32.9XXA Fracture of unspecified parts of lumbosacral spine and pelvis, initial encounter for closed fracture; M53.3 Sacrococcygeal disorders, not elsewhere classified
CPT/HCPCS: 99203

== ENCOUNTER 2023-09-27 10:46 | Outpatient (REF) | payer MEDICAID, SELFPAY ==
--- NOTE | ~2023-09-27 | XR_ITS ---
EXAMINATION: XR LUMBOSACRAL SPINE CLINICAL INFORMATION: Back pain COMPARISON: X-ray pelvis 07/28/2019. CT bilateral hips 11/26/2022 and pelvis 08/04/2021 TECHNIQUE: Three views of the lumbosacral spine. FINDINGS: Levoscoliosis of the lumbar spine. Redemonstration of extensive deformity related to multiple previous/old pelvic fractures, better characterized on prior CT scans. Visualization limited due to these deformities with overlying bone and bowel. Redemonstration of multilevel degenerative changes with grade 1 anterolisthesis of L4 on L5. Advanced facet arthropathy in the lower lumbar spine. XR/XR lumbar spine 2-3V IMPRESSION: Redemonstration of extensive deformity related to multiple previous/old pelvic fractures, better characterized on prior CT scans. Visualization limited due to these deformities with overlying bone and bowel. Redemonstration of multilevel degenerative changes with grade 1 anterolisthesis of L4 on L5. Advanced facet arthropathy in the lower lumbar spine.
== END 2023-09-27 10:47 | disposition home or self-care (01) ==
LOC: HO.HOSX 10:46
PROVIDERS: PCP Family Medicine; Visit Provider Physical Medicine & Rehabilitation
DX: M70.71 Other bursitis of hip, right hip (principal); M70.72 Other bursitis of hip, left hip; M53.3 Sacrococcygeal disorders, not elsewhere classified; S32.9XXA Fracture of unspecified parts of lumbosacral spine and pelvis, initial encounter for closed fracture; G89.29 Other chronic pain; X58.XXXA Exposure to other specified factors, initial encounter; Y93.9 Activity, unspecified; Y92.9 Unspecified place or not applicable; Y99.9 Unspecified external cause status
CPT/HCPCS: 72100; 99202

== ENCOUNTER 2024-09-25 13:37 | Outpatient (REF) | payer MEDICAID, SELFPAY ==
--- OUTSIDE RECORDS SUMMARY | 2024-09-25 13:41 | XMS_ITS | Encounter Summary ---
Author Organization [employer] Address [address] [facility] 7[address] [place] [address] Care Team Providers Care Blind Lacer Name Role Phone Yoli Cardenas MD Primary Care Provider [phone] Reason for Visit * Reason Onset Date Comments Appointment Request 03/20/2023 Encounter Details Date Type Department Care Team ([facility] Contact Info) Description 03/20/2023 Telephone [facility] [address] [place], [place] [phone] Yoli Cardenas MD [address] [place] [address] Appointment Request Social History Tobacco Use Types Packs/Day Years Used Date Smoking Tobacco: Every Day Cigarettes Passive Smoke Exposure: Current Alcohol Use Standard Drinks/Week Comments Never 0 (1 standard drink = 0.6 oz pur e alcohol) Depression Answer Date Recorded Patient Health Questionnaire-9 Score 0 10/25/2022 Housing Stability Answer Date Recorded What is your housing situation today? I have gloria dangelo 01/10/[address] you li ve. Do you have problems with any of the following? None of the above 01/10/2023 Food Insecurity Answer Date Recorded Within the past 12 months, y ou worried that your food would run out before you got money to buy more: Never True 01/10/2023 Within the past 12 months,th e food you bought just didn't last and you didn't have enough money to get more: Never True Transportation Answer Date Recorded In the past 12 months, has l ack of transportation kept you from medical appts, meetings, work or from getting things needed for daily living? No 01/10/2023 Utilities Answer Date Recorded In the past 12 months, has t he electric, gas, oil or water company threatened to shut off services in your home? No 01/10/2023 Depression Answer Date Recorded Patient Health Questionnaire-2 Score 0 10/25/2022 Comments No Sex and Gender Information Value Date Recorded Sex Assigned at Female 01/15/2022 10:20 AM EDT Legal Sex Female 10:20 AM EDT Gender Identity Female 01/15/2022 10:20 AM EDT Sexual Orientation Straight 01/15/2022 10 :20 AM EDT documented as of this encounter Miscellaneous Notes * Telephone Encounter - Baylee Damian - 03/20/2023 9:53 AM EST Tc from pt requesting to speak with provider through the Phone or see provider at least, pt is being very persistent in regards to having an appt with provider as soon as possible. Pt explained that she is having constant pain through her joints and body and denied going to [facility] or triage. Please contact pt @ [phone] documented in this encounter Plan of Treatment Upcoming Encounters Date Type Department Care Team (Late st Contact Info) Description 09/28/2024 1:00 PM EDT Office Visit [facility] [address] [place] [phone] Yoli Cardenas MD [address] [place] [phone] 11/06/2024 11:30 AM EDT Clinical Support [facility] [address] [place] [phone] Na Haas RN [address] [place] [address] documented as of this encounter Visit Diagnoses Not on filedocumented in this encounter Additional Health Concerns Assessment Noted Time PHQ-9 Depression Total Score: 0 10/26/19 10:26 AM EDT documented as of this encounter Care Teams Blind Lacer Relationship Specialty Start Date End Date Yoli Cardenas MD [address] [place] [address] PCP - General Family Medicine 10/19/22 documented as of this encounter
[2024-09-28 15:14] LABS: Codeine, Ur 1279; Hydrocodone, Ur NEGATIVE
[2024-09-28 15:15] LABS: Hydromorphone, Ur 84
[2024-09-28 15:16] LABS: Morphine, Ur >10000; Norhydrocodone, Ur NEGATIVE
[2024-09-28 15:18] LABS: Noroxycodone, Ur NEGATIVE; Oxycodone, Ur NEGATIVE
[2024-09-28 15:19] LABS: Oxymorphone, Ur NEGATIVE
== END 2024-09-25 13:38 | disposition home or self-care (01) ==
LOC: HO.HHCLNP 13:37
PROVIDERS: Visit Provider Family Medicine
DX: F41.9 Anxiety disorder, unspecified (principal)
CPT/HCPCS: 80365; G0480

== ENCOUNTER 2024-11-25 09:56 | Outpatient (REF) | payer MEDICAID, SELFPAY ==
--- OUTSIDE RECORDS SUMMARY | 2024-11-26 12:08 | XMS_ITS | Encounter Summary ---
Author Organization [employer] Address [address] [facility] 7t [place] [address] Care Team Providers Care Inside Sales Account Representative Name Role Phone Yoli Cardenas MD Primary Care Provider [phone] Reason for Visit * Reason Onset Date Comments Results 02/19/2023 Encounter Details Date Type Department Care Team ([facility] Contact Info) Description 02/19/2023 Telephone [facility] [address] [place], [place] [phone] Yoli Cardenas MD [address] [place], [place] [phone] Results Social History Tobacco Use Types Packs/Day Years [...] Patient Health Questionnaire-2 Score 0 10/25/2022 Comments Unknown Sex and Gender Information Value Date Recorded Sex Assigned at Female 01/15/2022 10:20 AM EDT Legal Sex Female 10:20 AM EDT Gender Identity Female 01/15/2022 10:20 AM EDT Sexual Orientation Straight 01/15/2022 10 :20 AM EDT documented as of this encounter Miscellaneous Notes * Telephone Encounter - Ashley Logan - 02/19/2023 1:27 PM EST Tc from pt requesting a call back in regards results. documented in this encounter Plan of Treatment Upcoming Encounters Date Type Department Care Team (Late st Contact Info) Description 11/30/2024 1:45 PM EDT Office Visit [facility] [address] [place] [phone] Yoli Cardenas MD [address] [place] [phone] 12/18/2024 11:30 AM EDT Clinical Support [address] [phone] Na Haas, MORTEZA [address] [place] [address] documented as of this encounter Visit Diagnoses Not on filedocumented in this encounter Additional Health Concerns Assessment Noted Time PHQ-9 Depression Total Score: 0 10/26/19 10:26 AM EDT documented as of this encounter Care Teams Inside Sales Account Representative Relationship Specialty Start Date End Date Yoli Cardenas MD [address] [place] [phone] PCP - General Family Medicine 10/19/22 documented as of this encounter
--- OUTSIDE RECORDS SUMMARY | 2024-11-26 12:08 | XMS_ITS | Encounter Summary ---
Author Organization [employer] Address [address] [facility] 7[address] [place] [address] Care Team Providers Care Vessel Liner Name Role Phone Yoli Cardenas MD Primary Care Provider Reason for Visit * Reason Onset Date Comments Med Refill 09/04/2024 Encounter Details Date Type Department Care Team ([facility] Contact Info) Description 09/04/2024 Telephone [facility]INE [address] [place] [address] Yoli Cardenas MD [address] [place] [address] Med Refill Social History Tobacco Use Types Packs/Day Years Used Date Smoking Tobacco: Every Day Cigarettes Passive Smoke Exposure: Current Alcohol Use Standard Drinks/Week Comments Never 0 (1 standard drink = 0.6 oz pur e alcohol) Depression Answer Date Recorded Patient Health Questionnaire-9 Score 6 08/03/2024 Patient Health Questionnaire-9 Score 6 08/03/2024 Last PHQ-9: Questionnaire Data Not on file 0 08/03/2024 Housing Stability Answer Date Recorded What is your housing situation today? I have gloria dangelo 08/03/[address] you li ve. Do you have problems with any of the following? None of the above 08/03/2024 Food Insecurity Answer Date Recorded Within the past 12 months, y ou worried that your food would run out before you got money to buy more: Never True 08/03/2024 Within the past 12 months,th e food you bought just didn't last and you didn't have enough money to get more: Never True Transportation Answer Date Recorded In the past 12 months, has l ack of transportation kept you from medical appts, meetings, work or from getting things needed for daily living? No 08/03/2024 Utilities Answer Date Recorded In the past 12 months, has t he electric, gas, oil or water company threatened to shut off services in your home? No 08/03/2024 Depression Answer Date Recorded Patient Health Questionnaire-2 Score 3 08/03/2024 Internet Access Answer Date Recorded Internet Access Q1 Yes 08/03/2024 Internet Access Q2 Not on file 08/03/2024 Comments No Sex and Gender Information Value Date Recorded Sex Assigned at Female 01/15/2022 10:20 AM EDT Legal Sex Female 10:20 AM EDT Gender Identity Female 01/15/2022 10:20 AM EDT Sexual Orientation Straight 01/15/2022 10 :20 AM EDT documented as of this encounter Miscellaneous Notes * Telephone Encounter - Olivia Dutta - 09/04/2024 1:14 PM EDT TC from pt requesting medication refill. Medications needing refill : clonazePAM (KlonoPIN) 0.5 MG tablet To be sent to: [facility]/pharmacy [address] [place] [address] documented in this encounter Plan of Treatment Upcoming Encounters Date Type Department Care Team (Late st Contact Info) Description 11/30/2024 1:45 PM EDT Office Visit [facility] MEDICINE [address] [place] [phone] Yoli Cardenas MD [address] [place] [phone] 12/18/2024 11:30 AM EDT Clinical Support [facility] [address] [place] [phone] Na Haas RN [address] [place] [address] documented as of this encounter Visit Diagnoses Not on filedocumented in this encounter Additional Health Concerns Assessment Noted Time PHQ-9 Depression Total Score: 6 08/04/19 25 2:21 PM EDT documented as of this encounter Care Teams Vessel Liner Relationship Specialty Start Date End Date Yoli Cardenas MD [address] [place] [phone] PCP - General Family Medicine 10/19/22 documented as of this encounter
--- OUTSIDE RECORDS SUMMARY | 2024-11-26 12:08 | XMS_ITS | Encounter Summary ---
Author Organization [employer] Address [address] [facility] 7[address] [place] [address] Care Team Providers Care Care Coordinator Name Role Phone Yoli Cardenas MD Primary Care Provider [phone] Reason for Visit * Reason Onset Date Comments Appointment Request 03/20/2023 Encounter Details Date Type Department Care Team ([facility] Contact Info) Description 03/20/2023 Telephone [facility] MEDICINE [address] [place], [place] [phone] Yoli Cardenas MD [address] [place] [address] Appointment Request Social History Tobacco Use Types [...] joints and body and denied going to [facility] or triage. Please contact pt @ [phone] documented in this encounter Plan of Treatment Upcoming Encounters Date Type Department Care Team (Late st Contact Info) Description 11/30/2024 1:45 PM EDT Office Visit [facility] MEDICINE [address] [place] [phone] Yoli Cardenas MD [address] [place] [phone] 12/18/2024 11:30 AM EDT Clinical Support [facility]INE [address] [place] [phone] Na Haas RN [address] [place] [address] documented as of this encounter Visit Diagnoses Not on filedocumented in this encounter Additional Health Concerns Assessment Noted Time PHQ-9 Depression Total Score: 0 10/26/19 10:26 AM EDT documented as of this encounter Care Teams Care Coordinator Relationship Specialty Start Date End Date Yoli Cardenas MD [address] [place] [address] PCP - General Family Medicine 10/19/22 documented as of this encounter
--- OUTSIDE RECORDS SUMMARY | 2024-11-26 12:08 | XMS_ITS | Encounter Summary ---
Author Organization [employer] Address [address] [facility] [address]t [place] [address] Care Team Providers Care Porter Bath Name Role Phone Yoli Cardenas MD Primary Care Provider [phone] Reason for Visit * Reason Onset Date Comments Med Refill 11/06/2024 Encounter Details Date Type Department Care Team ([facility] Contact Info) Description 11/06/2024 Telephone [facility] MEDICINE [address] [place] [address] Yoli Cardenas MD [address] [place] [address] Med Refill Social History Tobacco Use Types [...] encounter Miscellaneous Notes * Telephone Encounter - Malaika Arce LPN - 11/06/2024 3:45 PM EDT Duplicate request. * Telephone Encounter - Jason Catalan - 11/06/2024 3:42 PM EDT TC from pt requesting medication refill. Medications needing refill: clonazePAM (KlonoPIN) 0.5 MG tablet To be sent to: [facility]/pharmacy #[id number] [place] [address] documented in this encounter Plan of Treatment Upcoming Encounters Date Type Department Care Team (Late st Contact Info) Description 11/30/2024 1:45 PM EDT Office Visit [facility] MEDICINE [address] [place] [phone] Yoli Cardenas MD [address] [place] [phone] 12/18/2024 11:30 AM EDT Clinical Support [facility] MEDICINE [address] [place] [phone] Na Haas RN [address] [place] [address] documented as of this encounter Visit Diagnoses Not on filedocumented in this encounter Additional Health Concerns Assessment Noted Time PHQ-9 Depression Total Score: 6 08/04/19 25 2:21 PM EDT documented as of this encounter Care Teams Porter Bath Relationship Specialty Start Date End Date Yoli Cardenas MD [address] [place] [phone] PCP - General Family Medicine 10/19/22 documented as of this encounter
--- OUTSIDE RECORDS SUMMARY | 2024-11-26 12:08 | XMS_ITS | Encounter Summary ---
Author Organization [employer] Address [address] [facility] 7[address] [place] [address] Care Team Providers Care Vessel Welder Name Role Phone Yoli Cardenas MD Primary Care Provider [phone] Reason for Visit * Reason Onset Date Comments Appointment Request 11/06/2024 Encounter Details Date Type Department Care Team ([facility] Contact Info) Description 11/06/2024 Telephone [facility] MEDICINE [address] [place], [place] [phone] Yoli Cardenas MD [address] [place] [address] Appointment Request Social History Tobacco Use Types [...] encounter Miscellaneous Notes * Telephone Encounter - Jason Catalan - 11/06/2024 4:06 PM EDT Tc from pt requesting call back to reschedule CRITICAL SYSTEMS TECHNICIAN 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 Please contact pt at [phone]. documented in this encounter Plan of Treatment Upcoming Encounters Date Type Department Care Team (Late st Contact Info) Description 11/30/2024 1:45 PM EDT Office Visit [facility] MEDICINE [address] [place] [phone] Yoli Cardenas MD [address] [place] [phone] 12/18/2024 11:30 AM EDT Clinical Support [facility] MEDICINE [address] [place] [phone] Na Haas RN [address] [place] [address] documented as of this encounter Visit Diagnoses Not on filedocumented in this encounter Additional Health Concerns Assessment Noted Time PHQ-9 Depression Total Score: 6 08/04/19 25 2:21 PM EDT documented as of this encounter Care Teams Vessel Welder Relationship Specialty Start Date End Date Yoli Cardenas MD [address] [place] [address] PCP - General Family Medicine 10/19/22 documented as of this encounter
--- OUTSIDE RECORDS SUMMARY | 2024-11-26 12:08 | XMS_ITS | Encounter Summary ---
Author Organization [employer] Address [address] [facility] 7t [place] [address] Care Team Providers Care Regional Owner Operator Truck Driver Name Role Phone Yoli Cardenas MD Primary Care Provider [phone] Reason for Visit * Reason Onset Date Comments Appointment Request 02/19/2023 Encounter Details Date Type Department Care Team ([facility] Contact Info) Description 02/19/2023 Telephone [facility] MEDICINE [address] [place], [place] [phone] Yoli Cradenas MD [address] [place] [address] Appointment Request Social History Tobacco Use Types [...] Telephone Encounter - Ashley Logan - 02/19/2023 1:21 PM EST Tc from pt requesting f/u appt, jingle writer ask pt if any concerns with health to triage pt states no, pt want to be seen by PCP documented in this encounter Plan of Treatment Upcoming Encounters Date Type Department Care Team (Late st Contact Info) Description 11/30/2024 1:45 PM EDT Office Visit [facility] MEDICINE [address] [place] [phone] Yoli Cardenas MD [address] [place] [phone] 12/18/2024 11:30 AM EDT Clinical Support [facility] MEDICINE [address] [place] [phone] Na Haas, MORTEZA [address] [place] [address] documented as of this encounter Visit Diagnoses Not on filedocumented in this encounter Additional Health Concerns Assessment Noted Time PHQ-9 Depression Total Score: 0 10/26/19 10:26 AM EDT documented as of this encounter Care Teams Regional Owner Operator Truck Driver Relationship Specialty Start Date End Date Yoli Cardenas MD [address] [place] [phone] PCP - General Family Medicine 10/19/22 documented as of this encounter
--- OUTSIDE RECORDS SUMMARY | 2024-11-26 12:08 | XMS_ITS | Clinical Summary ---
Author Organization [employer] Address [address] [place] [address] Care Team Providers Care Crm Marketing Specialist Name Role Phone Yoli Cardenas MD Primary Care Provider [phone] Allergies No known active allergies Medications * This document contains information received from the source organization and may not represent a complete record from that organization. estradiol (Estrace) 0.1 MG/GM vaginal cream Insert 1 g into the vagina in the morning. 1g vaginally x 14d, then twice weekly thereafter 45 g 2 03/21/19 24 Active lidocaine (Lidoderm) 5 % patch Apply 1 patch topically in the morning. Remove & discard patch within 12 hours or as directed by . 30 patch 11 03/21/19 24 Active hydrOXYzine pamoate (Vistaril) 25 MG capsule Take 1 capsule (25 mg) by mouth every 6 (six) hours if needed for itching. 30 capsule 1 07/29/19 24 Active escitalopram (Lexapro) 10 MG tablet Take 1 tablet (10 mg) by mouth Once per day. 30 tablet 2 08/26/19 24 Active celecoxib (CeleBREX) 100 MG capsule Take 1 or 2 capsules by mouth once daily. 60 capsule 1 10/03/19 24 Active senna-docusate (Senokot S) 8.6-50 MG tablet Take 1 tablet by mouth 2 times daily. 60 tablet 11 08/04/19 25 Active Blood Pressure Monitor [facility] Check BP daily 1 each 09/29/19 25 Active clonazePAM (KlonoPIN) 0.5 MG tablet TAKE 1 TABLET BY MOUTH TWICE DAILY NEEDED FOR ANXIETY / PANIC ATTACK 56 tablet 08/24/20 25 Active clonazePAM (KlonoPIN) 0.5 MG tablet TAKE 1 TABLET BY MOUTH TWICE DAILY NEEDED FOR ANXIETY / PANIC ATTACK 56 tablet 10/07/19 25 025 Discontinued Active Problems Problem Noted Date Diagnosed Date Cocaine use 09/28/2024 Dyspnea 09/28/2024 Constipation 08/09/2024 Assessment & Plan (10/01/2024 4:11 PM EDT): - multifactorial: methadone; inadequate fiber - increase fiber intake - prescribed docusate-senna Assessment & Plan (08/09/2024 7:28 PM EDT): - multifactorial: methadone; inadequate fiber - increase fiber intake - try stool softener and senna Pyogenic arthritis of left hip 10/03/2023 Assessment & Plan (10/03/2023 9:59 AM EDT): - Incision and drainage of deep abscess of left hip in September 2020 Bilateral hip pain 08/02/2023 Assessment & Plan (10/01/2024 4:16 PM EDT): - left worse than right - patient is interested in PT; referred to [facility] as her partner goes there Assessment & Plan (10/02/2023 4:58 AM EDT): - left worse than right Assessment & Plan (08/02/2023 6:55 PM EDT): - left worse than right Perimenopause 08/02/2023 Assessment & Plan (08/02/2023 7:02 PM EDT): - s/p hysterectomy Skin lesion 07/29/2023 Assessment & Plan (07/29/2023 12:26 PM EDT): - Most likely due to scratching. We will prescribed hydroxyzine for itching. Back pain 04/02/2023 Assessment & Plan (10/01/2024 4:16 PM EDT): - Refer to PT Tobacco dependence 03/22/2023 Assessment & Plan (09/30/2024 8:20 PM EDT): - continue working on smoking cessation Assessment & Plan (08/03/2024 1:54 PM EDT): - continue working on smoking cessation Assessment & Plan (10/02/2023 4:59 AM EDT): - continue working on smoking cessation Assessment & Plan (07/29/2023 12:25 PM EDT): - continue working on smoking cessation Assessment & Plan (03/22/2023 9:50 AM EST): - continue working on smoking cessation Anxiety 03/22/2023 Assessment & Plan (10/01/2024 4:15 PM EDT): - pt is in process of getting therapist from [facility] - Pt has tried lexapro which was ineffective - restarted clonazepam 0.5 mg twice daily in July 2024 - continue attending [facility] appts - Discussed about drug interaction between clonazepam and methadone and high risk of over dose Assessment & Plan (08/09/2024 7:23 PM EDT): - pt reports previously tried clonazepam with good effect; - pt is in process of getting therapist from [facility] - Pt has tried lexapro which was ineffective - Pt would like to resume clonazepam 0.5 mg twice daily - Discussed about drug interaction between clonazepam and methadone and high risk of over dose - Pt agrees to follow our nurse for [facility] Assessment & Plan (10/03/2023 9:51 AM EDT): - pt reports previously tried clonazepam with good effect; - pt is interested in seeing psychiatrist. - we discussed about trying some pharmacological treatment today. Pt was not enthusiastic about medications, but is willing to try. - will consider either lexapro or venlafaxine. - Pt also seems to be going through menopause. - patient will contact another [facility] Assessment & Plan (07/29/2023 12:24 PM EDT): - pt reports previously tried clonazepam with good effect; - pt is interested in seeing psychiatrist. - we discussed about trying some pharmacological treatment today. Pt was not enthusiastic about medications, but is willing to try. - will consider either lexapro or venlafaxine. - Pt also seems to be going through menopause. Assessment & Plan (03/22/2023 9:52 AM EST): - pt reports previously tried clonazepam with good effect; informed of my concern about treating her anxiety with clonazepam - pt agreed to see Melvin and be referred to [facility]. Elevated BP without diagnosis of hypertension Assessment & Plan (09/30/2024 8:17 PM EDT): -Goal BP < 130/80 per ACC/AHA guideline (Treatment threshold >=140/90) -BP not at goal -Family Hx HTN -Continue working on lifestyle modifications -Recommended self-monitoring BP. Assessment & Plan (10/03/2023 9:46 AM EDT): -Goal BP < 140/90 per JNC-8 and < 130/80 per ACC/AHA guideline (Treatment threshold >= 140/90) -BP at goal today -Continue working on lifestyle modifications -Recommended self-monitoring BP. Assessment & Plan (07/29/2023 12:21 PM EDT): -Goal BP < 140/90 per JNC-8 and < 130/80 per ACC/AHA guideline (Treatment threshold >= 140/90) -BP almost at goal, pt attributes to pain. Had elevated readings previously. Transient elevation vs. HTN. Likely HTN. -Continue working on lifestyle modifications -Recommended self-monitoring BP. -Will not start a medication at this time; requested pt to complete her lab. -Follow up in 1 mo for BP check, sooner if any problem arises Assessment & Plan (03/22/2023 9:43 AM EST): -Goal BP < 140/90 per JNC-8 and < 130/80 per ACC/AHA guideline (Treatment threshold >= 140/90) -BP not at goal, pt attributes to pain. Had elevated readings previously. Transient elevation vs. HTN. Likely HTN. -Continue working on lifestyle modifications -Recommended self-monitoring BP. -Will not start a medication at this time; requested pt to complete her lab. -Follow up in 1 mo for BP check, sooner if any problem arises Gait abnormality 03/22/2023 Assessment & Plan (10/01/2024 4:17 PM EDT): - likely due to left hip pain and hx left pelvic fracture - also fentanyl hunch / fold - neurological disorder is still in differential - consider further evaluation for neurological disorder (MS) once she starts treatment with orthopedist Assessment & Plan (07/29/2023 12:09 PM EDT): - likely due to left hip pain and hx left pelvic fracture - neurological disorder is still in differential - consider further evaluation for neurological disorder (MS) once she starts treatment with orthopedist Assessment & Plan (03/22/2023 9:50 AM EST): - likely due to left hip pain and hx left pelvic fracture - neurological disorder is still in differential - consider further evaluation for neurological disorder (MS) once she starts treatment with orthopedist Atrophic vaginitis 03/22/2023 Assessment & Plan (03/22/2023 9:57 AM EST): - evaluated by Naye and prescribed estradiol cream - s/p MILANA/BSO for endometriosis - recommended to start using the cream Closed left hip fracture, sequela 11/30/2022 Assessment & Plan (09/28/2024 2:08 PM EDT): - Exact date unknown - previous imaging from July 2021 shows ununited fracture of the left iliac bone and old unchanged ununited left superior-inferiorpubic rami fractures. It also suggests small residual probable abscess superior to the left iliac bone measuring 3 x 3.7 cm with tract extending to the lateral skin surface of the buttock and septic arthritis because of widening in the left SI joint and loss of bone along the iliac and sacral sides. - 11/27/22 CT scan showed: 1. 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 2. Chronic widening and erosion at the left SI joint, most likely due to posttraumatic arthritis. Chronic changes of previous septic arthritis could also produce this appearance. No new findings of infection. Previously suspected abscess is no longer apparent. 3. 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 4. Nbmh-zc-ktwrgpmw osteoarthritis in the right sacroiliac joint. 5. Mild osteoarthritis in both hips. 6. Moderate degenerative disc disease at L4-L5 with grade 1 anterolisthesis. Severe facet arthropathy at L4-L5 and L5-S1. - seen by orthopedist in July and September 2023, patient needed to complete her lab and follow-up Assessment & Plan (10/03/2023 9:47 AM EDT): - Exact date unknown - previous imaging from July 2021 shows ununited fracture of the left iliac bone and old unchanged ununited left superior-inferiorpubic rami fractures. It also suggests small residual probable abscess superior to the left iliac bone measuring 3 x 3.7 cm with tract extending to the lateral skin surface of the buttock and septic arthritis because of widening in the left SI joint and loss of bone along the iliac and sacral sides. - 11/27/22 CT scan showed: 1. 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 2. Chronic widening and erosion at the left SI joint, most likely due to posttraumatic arthritis. Chronic changes of previous septic arthritis could also produce this appearance. No new findings of infection. Previously suspected abscess is no longer apparent. 3. 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 4. Vksa-kw-qngjjwjf osteoarthritis in the right sacroiliac joint. 5. Mild osteoarthritis in both hips. 6. Moderate degenerative disc disease at L4-L5 with grade 1 anterolisthesis. Severe facet arthropathy at L4-L5 and L5-S1. - seen by orthopedist in July and September 2023, patient needed to complete her lab and follow-up Assessment & Plan (07/29/2023 12:08 PM EDT): - Exact date unknown - previous imaging from July 2021 shows ununited fracture of the left iliac bone and old unchanged ununited left superior-inferiorpubic rami fractures. It also suggests small residual probable abscess superior to the left iliac bone measuring 3 x 3.7 cm with tract extending to the lateral skin surface of the buttock and septic arthritis because of widening in the left SI joint and loss of bone along the iliac and sacral sides. - 11/27/22 CT scan showed: 1. 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 2. Chronic widening and erosion at the left SI joint, most likely due to posttraumatic arthritis. Chronic changes of previous septic arthritis could also produce this appearance. No new findings of infection. Previously suspected abscess is no longer apparent. 3. 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 4. Dotq-zh-sgdaobla osteoarthritis in the right sacroiliac joint. 5. Mild osteoarthritis in both hips. 6. Moderate degenerative disc disease at L4-L5 with grade 1 anterolisthesis. Severe facet arthropathy at L4-L5 and L5-S1. - upcoming appointment with ortho tomorrow. Assessment & Plan (03/22/2023 9:47 AM EST): - Exact date unknown - previous imaging from July 2021 shows ununited fracture of the left iliac bone and old unchanged ununited left superior-inferiorpubic rami fractures. It also suggests small residual probable abscess superior to the left iliac bone measuring 3 x 3.7 cm with tract extending to the lateral skin surface of the buttock and septic arthritis because of widening in the left SI joint and loss of bone along the iliac and sacral sides. - 11/27/22 CT scan showed: 1. 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 2. Chronic widening and erosion at the left SI joint, most likely due to posttraumatic arthritis. Chronic changes of previous septic arthritis could also produce this appearance. No new findings of infection. Previously suspected abscess is no longer apparent. 3. 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 4. Lxfd-bk-kkxgybqo osteoarthritis in the right sacroiliac joint. 5. Mild osteoarthritis in both hips. 6. Moderate degenerative disc disease at L4-L5 with grade 1 anterolisthesis. Severe facet arthropathy at L4-L5 and L5-S1. - upcoming appointment with ortho tomorrow. Assessment & Plan (11/30/2022 6:31 AM EDT): - Exact date unknown - previous imaging from July 2021 shows ununited fracture of the left iliac bone and old unchanged ununited left superior-inferiorpubic rami fractures. It also suggests small residual probable abscess superior to the left iliac bone measuring 3 x 3.7 cm with tract extending to the lateral skin surface of the buttock and septic arthritis because of widening in the left SI joint and loss of bone along the iliac and sacral sides. - will refer to orthopedist - pending most recent CT scan result; will fax the report when it becomes available Left hip pain 11/30/2022 Assessment & Plan (10/01/2024 4:15 PM EDT): - Hx left iliac and pubic bone fracture - Hx deep abscess, possible septic arthritis - referred to orthopedist for further evaluation and management; missed appointment several times; rescheduled appointment for tomorrow - evaluate for chronic osteomyelitis (start with lab) - discussed about harm reduction with IV drug use - patient reports ibuprofen side effects and acetaminophen was ineffective, will try Celebrex - patient requests second opinion because she is concerned that she is developing complications from previous septic arthritis - referred to orthopedist for second opinion; patient will reschedule Assessment & Plan (08/03/2024 1:54 PM EDT): - Hx left iliac and pubic bone fracture - Hx deep abscess, possible septic arthritis - referred to orthopedist for further evaluation and management; missed appointment several times; rescheduled appointment for tomorrow - evaluate for chronic osteomyelitis (start with lab) - discussed about harm reduction with IV drug use - patient reports ibuprofen side effects and acetaminophen was ineffective, will try Celebrex - patient requests second opinion because she is concerned that she is developing complications from previous septic arthritis - will refer to orthopedist for second opinion Assessment & Plan (10/03/2023 9:51 AM EDT): - Hx left iliac and pubic bone fracture - Hx deep abscess, possible septic arthritis - referred to orthopedist for further evaluation and management; missed appointment several times; rescheduled appointment for tomorrow - evaluate for chronic osteomyelitis (start with lab) - discussed about harm reduction with IV drug use - patient reports ibuprofen side effects and acetaminophen was ineffective, will try Celebrex - patient requests second opinion because she is concerned that she is developing complications from previous septic arthritis - will refer to orthopedist for second opinion Assessment & Plan (07/29/2023 12:08 PM EDT): - Hx left iliac and pubic bone fracture - Hx deep abscess, possible septic arthritis - referred to orthopedist for further evaluation and management; missed appointment several times; rescheduled appointment for tomorrow - evaluate for chronic osteomyelitis (start with lab) - discussed about harm reduction with IV drug use - will prescribe Lidoderm patch and meloxicam Assessment & Plan (03/22/2023 9:45 AM EST): - Hx left iliac and pubic bone fracture - Hx deep abscess, possible septic arthritis - referred to orthopedist for further evaluation and management; missed appointment several times; rescheduled appointment for tomorrow - evaluate for chronic osteomyelitis (start with lab) - discussed about harm reduction with IV drug use - will prescribe Lidoderm patch and meloxicam Assessment & Plan (11/30/2022 6:39 AM EDT): - Hx left iliac and pubic bone fracture - Hx deep abscess, possible septic arthritis - refer to orthopedist for further evaluation and management - consider ID referral for an advice in treating with antibiotic - discussed about harm reduction with IV drug use - will prescribe Lidoderm patch and meloxicam Sexual dysfunction 11/30/2022 Assessment & Plan (11/30/2022 6:35 AM EDT): - partially due to opioid use - likely due to Hx deep abscess of hip and hip fracture - evaluate with US - check lab Viral hepatitis C 05/01/2018 Assessment & Plan (08/03/2024 1:53 PM EDT): - reminded about lab Assessment & Plan (10/03/2023 9:47 AM EDT): - reminded about lab Assessment & Plan (08/02/2023 7:00 PM EDT): - reminded about lab Assessment & Plan (03/22/2023 9:43 AM EST): - reminded about lab Sciatica 05/01/2018 Opioid dependence 05/01/2018 Assessment & Plan (10/01/2024 4:13 PM EDT): - actively using - currently in methadone clinic, 130 mg daily - discussed about harm reduction - discussed about resources for support Assessment & Plan (08/03/2024 1:54 PM EDT): - actively using - currently in methadone clinic, 130 mg daily - discussed about harm reduction - discussed about resources for support Assessment & Plan (10/02/2023 4:59 AM EDT): - actively using - currently in methadone clinic, 130 mg daily - discussed about harm reduction - discussed about resources for support Assessment & Plan (03/22/2023 9:50 AM EST): - actively using - currently in methadone clinic, 130 mg daily - discussed about harm reduction - discussed about resources for support Assessment & Plan (11/30/2022 6:54 AM EDT): - actively using - currently in methadone clinic, 100 mg daily - discussed about harm reduction - discussed about resources for support H/O: hysterectomy 05/01/2018 Mood disorder 05/01/2018 Assessment & Plan (10/01/2024 4:13 PM EDT): - anxiety, panic attacks, agraphobia - in a setting of opioid / cocaine use - patient has been contacting [facility] to establish [facility] Assessment & Plan (08/03/2024 1:53 PM EDT): - anxiety, panic attacks, agraphobia - in a setting of opioid / cocaine use - patient will contact another [facility] Assessment & Plan (10/03/2023 9:50 AM EDT): - anxiety, panic attacks, agraphobia - in a setting of opioid / cocaine use - patient will contact another [facility] Assessment & Plan (03/22/2023 9:51 AM EST): - anxiety, panic attacks, agraphobia - in a setting of opioid / cocaine use - refer to [facility] Assessment & Plan (11/30/2022 6:53 AM EDT): - anxiety - in a setting of opioid / cocaine use - refer to [facility] in near future Encounters Date Type Department Care Team Description 11/09/2024 Travel 11/09/[address] [facility] P[facility] [address] [place] [phone] aN Haas RN 11/06/[address] [facility] [address] [place] [phone] Yoli Cadrenas MD Appointment Request 11/06/[address] [facility] [address] [place] [address] Yoli Cardenas MD 11/06/[address] [facility] [address] [place] [phone] Yoli Cardenas MD Med Refill 11/06/2024 Telephone [facility] [address] [place] [address] Na aHas RN 10/09/[address] [facility] [address] [place] [phone] Yoli Cardenas MD Labs Only 10/05/[address] [facility] [address] [place] [address] Chelsea Mane ANP 09/28/2024 1:00 PM EDT Office Visit [facility] [address] [place] [phone] Yoli Cardenas MD Cocaine use (Primary Dx); Anxiety; Mood disorder (CMS/HCC); Gait abnormality; Tobacco dependence; Dyspnea, unspecified type; Elevated BP without diagnosis of hypertension; Left hip pain; Bilateral hip pain; Chronic low back pain, unspecified back pain laterality, unspecified whether sciatica present; Closed left hip fracture, sequela; Screening for colon cancer; Constipation, unspecified constipation type; Uncomplicated opioid dependence (CMS/HCC) 09/25/2024 10:30 AM EDT Clinical Support [facility] [address] [place] [phone] Na Haas RN Anxiety (Primary Dx) 09/25/[address] [facility] [address] [place] [address] Yoli Cardenas MD chart prep 09/25/[address] [facility] [address] [place] [address] Na Haas RN 09/25/2024 Travel 09/04/2024 Refill [facility] [address] [place], [place] [phone] Na Haas RN 09/04/[address] [facility] [address] [place] [phone] Yoli Cardenas MD Med Refill from Last 3 Months Immunizations Immunization Administration Dates Next Due Td (adult), 5 Lf tetanus tox oid, preservative free, adsorbed 09/01/2012 Social History Tobacco Use Types Packs/Day Years Used Date Smoking Tobacco: Every Day Cigarettes Passive Smoke Exposure: Current Tobacco Cessation:Ready to Q uit: Not Asked; Counseling Given: Not Answered Alcohol Use Standard Drinks/Week Comments Never 0 (1 standard drink = 0.6 oz pur e alcohol) Depression Answer Date Recorded Patient Health Questionnaire-9 Score 6 08/03/2024 Patient Health Questionnaire-9 Score 6 08/03/2024 Last PHQ-9: Questionnaire Data Not on file 0 08/03/2024 Housing Stability Answer Date Recorded What is your housing situation today? I have gloria loreto 08/03/[address] you li [...] Orientation Straight 01/15/2022 10 :20 AM EDT Last Filed Vital Signs Vital Sign Reading Time Taken Comments Blood Pressure 142/98 09/28/2024 1:59 PM EDT Pulse 118 09/28/2024 1:28 PM EDT Temperature 35.7 C (96.2 F) 09/28/2024 1:28 PM EDT Respiratory Rate 22 09/28/2024 1:28 PM EDT Oxygen Saturation 98% 09/28/2024 1:28 PM EDT Inhaled Oxygen Concentration - - Weight 69.2 kg (152 lb 9.6 oz) 09/28/2024 1:28 P M EDT Height 157.5 cm (5' 2 ) 09/28/2024 1:28 PM EDT Body Mass Index 27.91 09/28/2024 1:28 PM EDT Plan of Treatment Upcoming Encounters Date Type Department Care Team (Late st Contact Info) Description 11/30/2024 1:45 PM EDT Office Visit [facility] [address] [place] [phone] Yoli Cardenas MD [address] [place] [phone] 12/18/2024 11:30 AM EDT Clinical Support [facility] [address] [place] [phone] Na Haas, MORTEZA [address] [place] [address] Health Maintenance Due Date Last Done Comments CT Colonography 1975 Colonoscopy 1975 Colorectal Cancer Screening 1975 FIT DNA/Cologuard 1975 FIT 1975 FOBT 1975 HIV Screening 1975 Lipid Panel 1975 Sigmoidoscopy 1975 Family Planning (PISQ) 06/15/1990 Hepatitis A Vaccines (1 of 2 - Risk 2-dose series) 06/15/1994 Hepatitis B Vaccines (1 of 3 - 19+ 3-dose series) 06/15/1994 Pneumococcal Vaccine: Pediatrics (0 to 5 Years) and At-Risk Patients (6 to 49) Years (1 of 2 - PCV) 06/15/1994 DTaP/Tdap/Td Vaccines (1 - Tdap) 09/02/2012 09/01/2012 Mammogram 2015 COVID-19 Vaccine (1 - 2023-2 5 season) 2024 Influenza Vaccine (#1) 2024 Zoster Vaccines (1 of 2) 06/15/2025 Alcohol/Substance Use Screening 08/03/2025 08/03/2024 Depression Screening 08/03/2025 08/03/2024, 08/03/2024 Disability Screening 08/03/2025 08/03/2024 SDOH Screening 08/03/2025 08/03/2024 Tobacco Screening 09/28/2025 09/28/2024 RSV Patients and Patients Aged 60 years or older (1 - 1-dose 75+ series) 06/15/2050 HIB Vaccines Aged Out No longer eligi ble based on patient's age to complete this topic HPV Vaccines Aged Out No longer eligi ble based on patient's age to complete this topic IPV Vaccines Aged Out No longer eligi ble based on patient's age to complete this topic Meningococcal B Vaccine Aged Out No l onger eligible based on patient's age to complete this topic Meningococcal Vaccine Aged Out No dylon frances eligible based on patient's age to complete this topic RSV under 20 months Aged Out No longe r eligible based on patient's age to complete this topic Rotavirus Vaccines Aged Out No longer eligible based on patient's age to complete this topic Procedures Procedure Name Priority Date/Time Associated Diagnosis Comments POCT ROSALVA-14 URINE DRUG SCREEN Routine 09/25/2024 11:13 AM EDT Anxiety DRUG MONITOR, OPIATES EXPANDED, QN, URINE Routine 09/25/2024 12:00 AM EDT LAB COLOGUARD COLON CANCER SCREEN- Unsuccessful Attempt Routine 09/15/2024 7:15 PM EDT Screening for colon cancer from Last 3 Months Results * (ABNORMAL) POCT ROSALVA-14 Urine Drug Screen (09/25/2024 11:13 AM EDT) THC Negative Negative Cocaine Screen, Urine Positive(A) Negative Opiate Screen, Urine Positive(A) Negative Methamphetamine Screen Urine Negative Negative Amphetamine Screen, Urine Negative Negative Benzodiazepines Screen, Urine Negative Negative Barbiturate Screen, Urine Negative Negative Methadone Screen, Urine Positive(A) Negative Buprenophine Screen, Urine Negative Negative TCA, Urine Negative Negative MDMA Urine Negative Negative ng/mL Oxycodone Screen, Urine Negative Negative Phencyclidine (PCP), Urine Negative Negative Propoxyphene, Urine Negative Negative Fentanyl, Urine Positive(A) Negative Urine Urine specimen obtained by clean catch procedure / Unknown 09/25/2024 11:13 AM EDT Narrative Na Haas, RN - 09/25/2024 11:13 AM EDT .UT[employer] cup Lot#[id number] Exp. 12/22/25 Internal Pass Control Yoli Cardenas MD POINT OF CARE TEST ENTER/EDIT OR DERABLES Final Result * Drug Monitoring, Opiates Expanded, Quantitative, Urine (09/25/2024 12:00 AM EDT) Codeine, Urine 1279 [facility] Comment:[id number] ng/mL Hydrocodone, Ur NEGATIVE [facility] Comment:[id number] ng/mL Oxycodone, Urine NEGATIVE [facility] Comment:[id number] ng/mL Oxycodone GC/MS Note SEE NOTE [facility] Comment:LDT Notes:Confirmati on tests were developed and their analyticalperformance characteristics have been determined by [employer]. It has not been cleared orapproved by the FDA. This assay has been validated pursuantto the CLIA regulations and is used for clinical purposes.Healthcare Providers needing Interpretation assistance,please contact us at [phone] ( ) M-F,8am to 10pm EST Morphine, Urine >11[address] [facility] Comment:[id number] ng/mL Hydromorphone, Urine 84 [facility] Comment:[id number] ng/mL Oxymorphone, Urine NEGATIVE [facility] Comment:[id number] ng/mL Opiates GC/MS Note SEE NOTE [facility] Comment: NOTES AND COMMENTSThis drug testing is for medical treatment only. Analysiswas performed as non-forensic testing and these resultsshould be used only by healthcare providers torender diagnosis or treatment, or to monitor progress ofmedical conditions.Opiates Notes:Codeine, Morphine detected is consistent with the use of thedrug Codeine. Morphine is a metabolite of Codeine. Lowconcentrations of Morphine have beenobserved following ingestion of products containing poppyseeds.Morphine detected is consistent with the use of the drugMorphine. Morphine can be a prescribed drug and is also ametabolite of Codeine and Heroin. Lowconcentrations of Morphine have been observed followingingestion of products containing poppy seeds.Hydromorphone detected is consistent with the use of thedrug Hydromorphone. Hydromorphone can be a prescribed drugand is also a metabolite ofHydrocodone.Hydromorphone <15% Morphine detected is consistent withHydromorphone as minor metabolite of Morphine.LDT Notes:Confirmation tests were developed and their analyticalperformance characteristics have been determined by [employer]. It has not been cleared orapproved by the FDA. This assay has been validated pursuantto the CLIA regulations and is used for clinical purposes.Healthcare Providers needing Interpretation assistance,please contact us at [phone] ( ) M-F,8am to 10pm ESTPERFORMING SITE:[address] [facility], [address] [place] [phone] Complaint Supervisor: JOHN ESPOSITO MD, CLIA:[id number] Norhydrocodone, Urine NEGATIVE [facility] Comment:[id number] ng/mL Noroxycodone, Urine NEGATIVE [facility] Comment:[id number] ng/mL 09/25/2024 09/25/2024 Yoli Cardenas MD LAB URINE ORDERABLES Final Resul t Performing Organization Address [facility] Co de Phone Number [facility] [address] [place] [address] [phone] * Cologuard?? colon cancer screening (09/15/2024 7:15 PM EDT) - Unsuccessful Attempt Cologuard Result No Result Obtained 3 N/A 09/24/2024 6:09 PM EDT [facility] (CLIA #:[id number]) Comment: The Cologuard (TM) test was assigned to this specimen. There was insufficient stool DNA detected to produce a valid Cologuard result. The patient will be contacted to initiate a new sample collection. Stool specimen (specimen) 09/15/2024 7:15 PM EDT 09/17/2024 1:16 PM EDT Yoli Cardenas MD LAB MOLECULAR DIAGNOSTICS ORDERA BLES Final Result [facility] (CLIA #:[id number]) [address] [place] [address], [place] [phone] from Last 3 Months Insurance [facility] C3 Care Teams Crm Marketing Specialist Relationship Specialty Start Date End Date Yoli Cardenas MD [address] [place] [phone] PCP - General Family Medicine 10/19/22
--- OUTSIDE RECORDS SUMMARY | 2024-11-26 12:08 | XMS_ITS | Encounter Summary ---
Author Organization [employer] Address [address] [facility] [address] [place] [address] Care Team Providers Care Compliance Consultant Name Role Phone Yoli Cardenas MD Primary Care Provider [phone] Encounter Details Date Type Department Care Team ([facility] Contact Info) Description 08/26/2023 Orders Only [facility] MED[facility]INE [address] [place], [place] [phone] Yoli Cardenas MD [address] [place], [place] [phone] Social History Tobacco Use Types Packs/Day Years [...] AM EDT documented as of this encounter Plan of Treatment Upcoming Encounters Date Type Department Care Team (Late st Contact Info) Description 11/30/2024 1:45 PM EDT Office Visit [facility] MED[facility]INE [address] [place] [phone] Yoli Cardenas MD [address] [place] [phone] 12/18/2024 11:30 AM EDT Clinical Support [facility] [address] [place] [phone] Na Haas, RN [address] [place] [address] documented as of this encounter Visit Diagnoses Not on filedocumented in this encounter Additional Health Concerns Assessment Noted Time PHQ-9 Depression Total Score: 0 10/26/19 10:26 AM EDT documented as of this encounter Care Teams Compliance Consultant Relationship Specialty Start Date End Date Yoli Cardenas MD [address] [place] [phone] PCP - General Family Medicine 10/19/22 documented as of this encounter
--- OUTSIDE RECORDS SUMMARY | 2024-11-26 12:09 | XMS_ITS | Encounter Summary ---
Author Organization [employer] Address [address] [facility] [address] [place] [address] Care Team Providers Care Batch And Furnace Operator Name Role Phone Yoli Cardenas MD Primary Care Provider [phone] Encounter Details Date Type Department Care Team ([facility] Contact Info) Description 04/02/2023 Orders Only [facility] MEDICINE [address] [place], [place] [phone] Yoli Cardenas MD [address] [place], [place] [phone] Left hip pain (Primary Dx); Closed left hip fracture, sequela; Gait abnormality; Chronic low back pain, unspecified back pain laterality, unspecified whether sciatica present Social History Tobacco Use Types Packs/Day Years [...] Description 11/30/2024 1:45 PM EDT Office Visit [facility] MEDICINE [address] [place] [phone] Yoli Cardenas MD [address] [place] [phone] 12/18/2024 11:30 AM EDT Clinical Support [facility] [address] [place] [phone] Na Haas, RN [address] [place] [address] documented as of this encounter Visit Diagnoses Diagnosis Left hip pain- Primary Pain in joint, pelvic region and thigh Closed left hip fracture, sequela Gait abnormality Abnormality of gait Chronic low back pain, unspecified back pain laterality, unspecified whether sciatica present documented in this encounter Additional Health Concerns Assessment Noted Time PHQ-9 Depression Total Score: 0 10/26/19 10:26 AM EDT documented as of this encounter Care Teams Batch And Furnace Operator Relationship Specialty Start Date End Date Yoli Cardenas MD [address] [place] [phone] PCP - General Family Medicine 10/19/22 documented as of this encounter
== END 2024-11-25 09:57 | disposition home or self-care (01) ==
LOC: HO.HOSX 09:56
PROVIDERS: Visit Provider Physician Assistant
DX: Z13.89 Encounter for screening for other disorder (principal)